=== PATIENT | female | born 1930 | race Caucasian/White ===

== ENCOUNTER 2017-11-22 12:48 | Observation (INO) ==
--- NOTE | 2017-11-22 13:14 | Emergency Department Note ---
Fall HPI - General Chief Complaint: Fall Stated Complaint: Fall Time Seen by Provider: 11/22/17 12:50 Source: patient Limitations: no limitations - History of Present Illness HPI Narrative: 87-year-old female presents with fall last night. She states she got up from her chair and was going to the kitchen to get something and the next thing she knows she was falling. She denies getting dizzy. She has had about 3 falls since she has been living with her family but has not had a fall for a long time. She denies hitting her head or any neck pain. She states her main complaint is pain in the right scapular region. Is not on blood thinners. She goes to wound care and does hyperbaric chamber because of a wound on her right chest. She had breast cancer and had a mastectomy and radiation caused her to have a chronic wound. She states she urinates a lot but that does not seem to being new. No burning. No new cough or fevers. Family wanted her to get checked out to make sure she does not have a broken rib. She does not have much pain with inspiration. No shortness of breath. Sats are 100% on room air. She has chronic lymphedema in the right arm. She also had a little bit of pain in her right foot but does not seem to have any at this time. She usually uses a walker at home for ambulation. She does not ambulate as much as she used to. - Related Data Home Medications Medication Instructions Recorded Confirmed escitalopram 10 mg tablet 10 mg PO QDAY 08/02/16 11/22/17 metoprolol tartrate 50 mg tablet 50 mg PO QDAY 08/02/16 11/22/17 levothyroxine 25 mcg tablet See Label Instructions .ROUTE 12/06/16 11/22/17 .COMPLEX Previous Rx's Medication Instructions Recorded cholecalciferol (vitamin D3) 2,000 2,000 unit PO QDAY #30 cap 05/09/17 unit capsule Allergies Allergy/AdvReac Type Severity Reaction Status Date / Time tramadol AdvReac Intermediate hallucinati Verified 11/22/17 12:55 ons prochlorperazine AdvReac Mild Agitated Verified 11/22/17 12:55 [From Compazine] Review of Systems All systems ED: reviewed and negative except as stated. Fall PMH - Past Medical History Medical history: Reports: arthritis, cancer (breast), hypertension, thyroid disease, other (chronic wound right chest. 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 Mild tenderness on the right foot with no deformity. This is on the lateral aspect of the fifth metatarsal. Full range of motion of her ankles and knees. Bilateral shoulders nontender she has some crepitus with range of motion. Right arm chronic lymphedema. No pain with range of motion. She is tender on the right scapula worse over the scapula. She has some paraspinal tenderness as well. No deformity or bruising. Mild pain with inspiration. Limitations: no limitations General appearance: alert, in no apparent distress Head: atraumatic Eye: Present: normal appearance, PERRL, EOMI. Absent: conjunctival injection Neck: Present: normal inspection, full ROM. Absent: tenderness, lymphadenopathy Chest: Present: symmetric chest wall rise, other (1cm wound right chest, 3cm of erythema surrounding) Respiratory: Present: other (decreased lung sounds right base). Absent: respiratory distress Cardiovascular: Present: bradycardia, systolic murmur Abdominal: Present: soft, normal bowel sounds. Absent: tenderness Neurological: Present: alert, oriented X3 Psychiatric: Present: normal affect, normal mood Skin: Present: warm, dry Course Course Narrative: She will be admitted for pain control and observation by Dr. Fagan Vital Signs Temperature 98.7 F 11/22/17 12:48 Pulse Rate 60 11/22/17 12:48 Respiratory Rate 20 11/22/17 12:48 Pulse Oximetry (%) 96 11/22/17 12:48 Temperature 98.7 F 11/22/17 12:48 Pulse Rate 59 L 11/22/17 14:20 Respiratory Rate 16 11/22/17 14:27 Blood Pressure 159/58 11/22/17 14:20 Pulse Oximetry (%) 99 11/22/17 14:20 Fall - MDM Narrative Medical decision making narrative: Urine dip shows trace leukocytes - Radiology Data Radiology results reviewed: Yes I reviewed the patient's radiology results. Fractures of right 4-9 Disposition Pt seen by HOLE DIGGER OPERATOR/PA only: Yes Clinical Impression: Multiple rib fractures involving four or more ribs Disposition: Xfer As Outpt/Obs ([facility]) Condition: Fair Referrals: Lucero Fu ARNP [Primary Care Provider] -
--- NOTE | 2017-11-22 14:07 | XRay Report ---
HISTORY: Reason for Exam:fall, back pain FINDINGS: There are acute fractures laterally in the right fourth, fifth, sixth, seventh, eighth and ninth ribs. No callus has formed. There is mild pleural thickening adjacent to the rib fractures. No pneumothorax is present but there is a tiny right-sided pleural effusion. There are several calcified pleural plaques anteriorly in the right mid thorax. The heart size is upper limits of normal. Dual-chamber pacemaker is well-positioned. Severe arthritis is present in both shoulders. The spine cannot be evaluated on this study IMPRESSION: Multiple acute right-sided rib fractures Interpreted and Authenticated by: Kenji Gleason 11/22/17
--- NOTE | 2017-11-22 14:09 | XRay Report ---
HISTORY: Reason for Exam:scapular pain after fall FINDINGS: There is severe arthritis in both sides the glenohumeral joint. There is a contour deformity due to remodeling in both sides of the joint. There also large spurs and reactive sclerosis. The scapula is osteopenic but there is no evidence of a fracture of the scapula nor the humerus. There are fractures laterally in the right fourth through ninth ribs. The spine has a kyphotic curvature and there is arthritis and disc degeneration at multiple levels. IMPRESSION: Severe arthritis in the right shoulder but there is no evidence of a fractured scapula Fractured right side ribs Interpreted and Authenticated by: Kenji Gleason 11/22/17
[2017-11-22] MEDS ORDERED: HYDROcodone/APAP 5/325MG TABLET PO ONE (14:24)
[2017-11-22] MEDS ORDERED: HYDROcodone/APAP 5/325MG TABLET PO PRN (14:28)
[2017-11-22] MEDS ORDERED: HYDROmorphone 2 MG/ML VIAL IV PRN (14:33)
[2017-11-22] MEDS ORDERED: ONDANSETRON 4 MG/2 ML VIAL IV PRN (14:33)
--- NOTE | 2017-11-22 18:15 | General Surgery Consult Note ---
History of Present Illness Patient information: Note initiated : 11/22/17 at 6:09 pm Service Date, if different from initiated Date: [] Patient: Alicia Gleason 87 y/o F admitted on 11/22/17 for Fall. Chief Complaint: [] Consult date: 11/22/17 Requesting physician: Jomar Santana (Wound Care. Right chest wall.) History of present illness: I saw this patient in room 109 with her family members. 87 /F. H/O Right breast cancer treated with radical mastectomy in remote past. She has exposed rib and cartilage Right anterior chest wall surgery site. She is currently undergoing HBOT for osteoradionecrosis, in anticipation of reconstructive procedure by Dr. Viraj Yarbrough MD Plastic Surgeon in near future. Patient was admitted to hospital via ER for a NON syncopal fall at home and weakness of right thorax. X ray revealed multiple rib fractures and minimal pleural effusion without pneumothorax. I reviewed the X rays done on admission. Patient DENIES amnesia and is in her usual state of health. She does not have SOB. Her speech is clear and she is NOT cyanotic. Ate full meal. Moves all extremities. Medications and Allergies Home Medications Medication Instructions Recorded Confirmed Type escitalopram 10 mg tablet 20 mg PO QDAY 08/02/16 11/22/17 History metoprolol tartrate 50 mg tablet 50 mg PO QDAY 08/02/16 11/22/17 History levothyroxine 25 mcg tablet 25 mcg PO SUMOWETHFR 12/06/16 11/23/17 History cholecalciferol (vitamin D3) 2,000 2,000 unit PO QDAY #30 cap 05/09/17 11/22/17 Rx unit capsule Levothyroxine [Synthroid] 37.5 mcg PO TUSA 11/23/17 11/23/17 History Allergies Allergy/AdvReac Type Severity Reaction Status Date / Time tramadol AdvReac Intermediate hallucinati Verified 11/22/17 12:55 ons prochlorperazine AdvReac Mild Agitated Verified 11/22/17 12:55 [From Compazine] Exam Temp Pulse Resp BP Pulse Ox 97.0 F 60 16 144/60 96 11/22/17 16:00 11/22/17 15:47 11/22/17 16:00 11/22/17 16:00 11/22/17 16:00 - General physical appearance well developed, well nourished, no distress, no pain - Eyes PERRL, normal ocular movement - ENT normal pinna, normal nares, normal mucosa, no congestion - Head Head exam IM: Present: atraumatic, normal inspection, normocephalic - Neck no masses, no bruits, trachea midline, no venous distension - Cardiovascular Cardiovascular exam IM: Present: normal rate and rhythm - Respiratory normal expansion dullness: right (Decreased breath sounds Right lung base. ) - Abdomen Abdomen: Present: soft, non tender, bowel sounds - Integumentary Present: other (OPne chest wall sound with exposed rib /cartilage at site of previous mastectomy. This is stable and gradually improving. ) - Neurologic Present: normal coordination, normal sensation, other (No focal neurologic deficits. ) - Musculoskeletal Present: normal gait (Lymphedema of Right UE. ), other (Soft tissue lymphedema of RIGHT upper extremity since Rt Radical Mastectomy in remote past. ) - Psychiatric Present: oriented to time, oriented to person, oriented to place, speech is normal, memory intact, other (Lucid and Coherent. Good insight into her problem. ) Results - Labs 11/23/17 04:30 11/23/17 04:30 All other labs normal. Assessment and Plan (1) Blunt chest trauma Assessment: HBOT is on hold at this time, pending resolution of blunt chest wall trauma. Patient encouraged to use IS every 1 to 2 hours when awake. Salt water mouth gargles 4 to 5 times a day. Plan: Await evolution of her clinical status. Patient at risk of barotrauma to lungs with HBOT. If discharged, f/u at wound care clinic next week. Please call clinic and confirm appointment. I will follow her,whilst she is in hospital. Status: Acute Priority: High Qualifiers: Encounter type: initial encounter Qualified Code(s): S29.8XXA - Other specified injuries of thorax, initial encounter (2) Multiple rib fractures involving four or more ribs Status: Acute Priority: High Comment: For conservstive management. Use Incentive Spirometer q 2 hrly when awake. Pain medications PRN as appropriate.
--- NOTE | 2017-11-22 18:23 | General Surg History&Physical ---
History of Present Illness Patient information: Note initiated : 11/22/17 at 6:22 pm Service Date, if different from initiated Date: [] Patient: Alicia Gleason 87 y/o F admitted on 11/22/17 for Fall. Chief Complaint: [] HPI: Ms. Gleason is a 87 year old F was admitted for observation due to multiple rib fractures. The patient states that she was rising from a chair and became dizzy and fell. She complained of right sided chest pain. She was monitored overnight and finally came to the emergency room for evaluation. Chest x-ray shows fractures of the right fourth through the ninth rib. These are primarily non-displaced. She does not have evidence of pneumothorax. She does have some pleuritic pain. She has chronic lymphedema of the upper extremity on the right side but this is due to prior radical mastectomy and radiation changes over the chest wall. Review of Systems - Constitutional fatigue, weakness - EENT Nose, mouth and throat: dizziness, neck pain - Breasts skin changes, other (chronic chest wall changes from radiation injury and osteonecrosis without new changes) - Cardiovascular chest pain with activity, dyspnea on exertion - Respiratory dyspnea on exertion, pain on inspirtation, pain with cough - Gastrointestinal constipation - Genitourinary Genitourinary: nocturia, urinary frequency, urinary incontinence, urinary urgency - Musculoskeletal arthralgias, myalgias, stiffness - Integumentary change in pigmentation, changing lesions, non-healing lesions (extensive skin changes right anterior chest wall due to radiation injury) - Neurological tremor(s) - Psychiatric depression - Endocrine fatigue - Hematologic/Lymphatic no easy bleeding, no easy bruising, no lymphadenopathy - Allergic/Immunologic no tongue swelling, no throat swelling, no uticaria, no wheezing, no lip swelling Past History Past medical history: degenerative joint disease/osteoarthritis Breast cancer Hypertension Hypothyroidism 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 Chronic lymphedema right upper extremity Past surgical history: radical mastectomy right Cholecystectomy Hysterectomy Permanent pacemaker Past family history: not well understood Past social history: former smoker Every day alcohol user Medications and Allergies Home Medications Medication Instructions Recorded Confirmed Type escitalopram 10 mg tablet 20 mg PO QDAY 08/02/16 11/22/17 History metoprolol tartrate 50 mg tablet 50 mg PO QDAY 08/02/16 11/22/17 History levothyroxine 25 mcg tablet 25 mcg PO SUMOWETHFR 12/06/16 11/23/17 History cholecalciferol (vitamin D3) 2,000 2,000 unit PO QDAY #30 cap 05/09/17 11/22/17 Rx unit capsule HYDROcodone/APAP 5/325MG [[place] 1 tab PO Q4HP PRN #30 tab 11/23/17 Rx 5-325Mg] Levothyroxine [Synthroid] 37.5 mcg PO TUSA 11/23/17 11/23/17 History Lidocaine [Lidoderm] 1 patch TOPICAL DAILY@1000 #30 11/23/17 Rx patch Allergies Allergy/AdvReac Type Severity Reaction Status Date / Time tramadol AdvReac Intermediate hallucinati Verified 11/22/17 12:55 ons prochlorperazine AdvReac Mild Agitated Verified 11/22/17 12:55 [From Compazine] Exam Temp Pulse Resp BP Pulse Ox 97.0 F 60 16 144/60 96 11/22/17 16:00 11/22/17 15:47 11/22/17 16:00 11/22/17 16:00 11/22/17 16:00 - General physical appearance well developed, well nourished, no distress, moderate pain - Eyes PERRL, normal ocular movement - ENT normal pinna, normal nares, normal mucosa, no hearing loss, no congestion, decreased hearing - Head Head exam IM: Present: atraumatic (no evidence of head trauma), normal inspection (no tenderness to palpation), normocephalic - Neck no masses, no bruits, trachea midline, no lymphadectomy, no venous distension, other (good range of motion with no posterior lateral tenderness) - Cardiovascular Cardiovascular exam IM: Present: normal rate and rhythm, bradycardia, +S1, +S2. Absent: JVD - Respiratory normal respiratory effort, clear to percussion, clear to auscultation, other ( mild splinting right side; no rales rhonchi or rubs or wheezes) - Abdomen Abdomen: Present: soft, non tender, bowel sounds Hernia: Present: none - Genitourinary Present: normal external genitalia - Integumentary Present: no rash, no growths, other (chronic inflammatory changes right chest wall with superficial ulceration) - Neurologic Present: normal coordination, normal sensation, other (resting tremor of upper extremities) - Musculoskeletal Present: normal gait, normal posture, other (no evidence of bony tenderness or deformity; stable pelvic exam to compression) - Psychiatric Present: oriented to time, oriented to person, oriented to place, speech is normal, memory intact Assessment and Plan (1) Multiple rib fractures involving four or more ribs Status: Acute Priority: High Comment: For conservstive management. Use Incentive Spirometer q 2 hrly when awake. Pain medications PRN as appropriate. (2) Blunt chest trauma Status: Acute Priority: High Qualifiers: Encounter type: initial encounter Qualified Code(s): S29.8XXA - Other specified injuries of thorax, initial encounter (3) Hypertension Status: Acute Qualifiers: Hypertension type: essential hypertension Qualified Code(s): I10 - Essential (primary) hypertension (4) History of breast cancer in female Status: Chronic (5) Renal failure Status: Chronic Qualifiers: Chronic kidney disease stage: stage 2 (mild)
[2017-11-23] MEDS ORDERED: ACETAMINOPHEN 500 MG TABLET PO SCH
[2017-11-23] MEDS: ACETAMINOPHEN 1,000 MG/100 ML BOTTLE IV SCH ×2 (00:59→01:36)
[2017-11-23] MEDS ORDERED: ACETAMINOPHEN 500 MG TABLET PO PRN (01:30)
[2017-11-23] MEDS ORDERED: ACETAMINOPHEN 500 MG TABLET PO ONE ×2 (01:38→06:00)
[2017-11-23 06:04] LABS: ALT/SGPT 19 U/l (0-40); Albumin 3.5 gm/dL (3.2-5.2); Albumin/Globulin Ratio 1.1 (1.0-2.3); Alkaline Phosphatase 95 U/L (39-117); Bilirubin,Direct < 0.2 mg/dL (0.0-0.3); Blood Urea Nitrogen 36 mg/dl (8-23); Gamma Glutamyl Transpeptidase 68 U/L (5-36); Uric Acid 5.9 mg/dL (2.5-8.0)
[2017-11-23 06:08] LABS: Basophils # (Auto) 0 K/mcL (0.0-0.3); Basophils % (Auto) 0.6 % (0.0-2.0); Eosinophils # (Auto) 0.2 K/mcL (0.0-0.7); Eosinophils % (Auto) 2.1 % (0.0-7.0); Granulocytes % (Auto) 60.7 % (38.0-78.0); Lymphocytes # (Auto) 1.9 K/mcL (1.5-4.8); Lymphocytes % (Auto) 25.2 % (15.5-49.0); Mean Cell Volume 92.6 fL (80.0-100.0); Mean Corpuscular HGB Conc 33.4 g/dL (31.0-36.0); Mean Corpuscular Hemoglobin 30.9 pg (26.0-34.0); Monocytes # (Auto) 0.9 K/mcL (0.1-0.9); Monocytes % (Auto) 11.4 % (1.0-12.0); Platelet Count 197 K/mcL (140-440); Red Cell Distribution Width 12.7 % (11.5-14.5)
[2017-11-23] MEDS: ACETAMINOPHEN 500 MG TABLET PO SCH ×2 (06:10→11:45)
--- NOTE | 2017-11-23 08:42 | XRay Report ---
HISTORY: Reason for Exam:f/u of chest injury and rib fractures FINDINGS: There are multiple acute right-sided rib fractures. The adjacent pleura is mildly thickened. No pneumothorax is present. There is a stable tiny right-sided pleural effusion. The central hilar vessels appear engorged and there are prominent increased interstitial lung markings bilaterally. The heart size is normal. These findings have remained stable IMPRESSION: Stable chest since 11/22/17 with no enlargement of the right-sided pleural effusion or pneumothorax. Prominent increased interstitial lung markings and prominent pulmonary vessels. This may be a combination of chronic congestive heart failure with underlying pulmonary fibrosis. Interpreted and Authenticated by: Kenji Gleason 11/23/17
[2017-11-23] MEDS ORDERED: METOPROLOL TARTRATE 50 MG TABLET PO SCH (09:00)
[2017-11-23] MEDS ORDERED: ESCITALOPRAM 10 MG TABLET PO SCH (09:00)
[2017-11-23] MEDS ORDERED: PNEUMOCOCCAL 23-VAL P-SAC VAC 0.5 ML VIAL IM ONE (10:00)
[2017-11-23] MEDS ORDERED: LIDOCAINE PATCH TOPICAL SCH ×2 (10:00→22:00)
--- NOTE | 2017-11-23 13:49 | General Surgery Progress Note ---
Subjective Patient reports: feels better, pain is less, tolerating a regular diet, afebrile Narrative: Note initiated : 11/23/17 at 1:47 pm Service Date, if different from initiated Date: [] Patient: Alicia Gleason 87 y/o F admitted on 11/22/17 for Fall/Multiple Rib Fractures. Chief Complaint: [Patient is doing well. She denies shortness of breath. Her pain is controlled. She has not been very immobile. She has no other discomfort except for chest pain. She denies upper extremity pain, truncal pain or lower extremity pain. Chest x-ray shows no evidence of parenchymal damage upper lung. There is no evidence of pneumothorax.] Objective Temp Pulse Resp BP Pulse Ox 97.3 F 81 18 120/77 95 11/23/17 11:22 11/23/17 04:00 11/23/17 11:22 11/23/17 11:22 11/23/17 11:22 - Additional Data Intake & Output - Last 24 hours: Intake & Output 11/21/17 11/22/17 11/23/17 11/24/17 05:59 05:59 05:59 05:59 Intake Total 480 / 480 240 / 240 Output Total 2 / 2 Balance 478 / 478 240 / 240 Weight 134 lb 8 oz - General physical appearance well developed, well nourished, no distress, moderate pain - Eyes PERRL, normal ocular movement - ENT normal pinna, normal nares, normal mucosa, no hearing loss, no congestion - Neck no masses, no bruits, trachea midline, no lymphadectomy, no venous distension - Respiratory other (Good breath sounds bilaterally though slightly decreased on the right due to splinting; no rales rubs rhonchi or wheezes) - Cardiovascular Cardiovascular exam: Present: normal rate and rhythm, RRR, +S1, +S2. Absent: JVD - Abdomen non tender, bowel sounds (present), surgical scars (none), masses (none) - Integumentary no rash, no growths, other (Radiation changes right anterior chest wall) - Neurologic normal coordination, normal sensation - Musculoskeletal normal gait, normal posture, other (Right upper extremity lymphedema) - Psychiatric oriented to time, oriented to person, oriented to place, speech is normal, memory intact - Labs 11/23/17 04:30 11/23/17 04:30 Diabetes panel 11/23/17 Range/Units 04:30 Sodium 139 (133-145) mmol/L Potassium 4.4 (3.3-5.1) mmol/L Chloride 100 (96-108) mmol/L Carbon Dioxide 26 (22-30) mmol/L BUN 36 H (8-23) mg/dl Creatinine 1.0 (0.6-1.1) mg/dl Glucose 94 (70-105) mg/dL Calcium 9.1 (8.6-10.4) mg/dl AST 22 (0-37) U/l ALT 19 (0-40) U/l Alkaline Phosphatase 95 (39-117) U/L Total Protein 6.8 (5.9-8.4) gm/dL Albumin 3.5 (3.2-5.2) gm/dL Triglycerides 76 (<150) mg/dl Calcium panel 11/23/17 Range/Units 04:30 Calcium 9.1 (8.6-10.4) mg/dl Phosphorus 3.3 (2.7-4.5) mg/dL Albumin 3.5 (3.2-5.2) gm/dL Pituitary panel 11/23/17 Range/Units 04:30 Sodium 139 (133-145) mmol/L Potassium 4.4 (3.3-5.1) mmol/L Chloride 100 (96-108) mmol/L Carbon Dioxide 26 (22-30) mmol/L BUN 36 H (8-23) mg/dl Creatinine 1.0 (0.6-1.1) mg/dl Glucose 94 (70-105) mg/dL Calcium 9.1 (8.6-10.4) mg/dl Adrenal panel 11/23/17 Range/Units 04:30 Sodium 139 (133-145) mmol/L Potassium 4.4 (3.3-5.1) mmol/L Chloride 100 (96-108) mmol/L Carbon Dioxide 26 (22-30) mmol/L BUN 36 H (8-23) mg/dl Creatinine 1.0 (0.6-1.1) mg/dl Glucose 94 (70-105) mg/dL Calcium 9.1 (8.6-10.4) mg/dl Total Bilirubin 0.8 (0.0-1.0) mg/dL AST 22 (0-37) U/l ALT 19 (0-40) U/l Alkaline Phosphatase 95 (39-117) U/L Total Protein 6.8 (5.9-8.4) gm/dL Albumin 3.5 (3.2-5.2) gm/dL Assessment and Plan (1) Multiple rib fractures involving four or more ribs Problem details: For conservstive management. Use Incentive Spirometer q 2 hrly when awake. Pain medications PRN as appropriate. Status: Acute Assessment and plan: Patient is stable for discharge. She is to have follow-up with her primary with the chest x-ray in 1 week. Current Visit: Yes (2) Blunt chest trauma Status: Acute Current Visit: Yes - Time Spent With Patient Total time spent is greater than 50% in coordination of care (as documented) at patient's floor/unit and/or counseling patient:
[2017-11-24] MEDS ORDERED: LEVOTHYROXINE 25 MCG TABLET PO SCH (07:30)
[2017-11-25] MEDS ORDERED: LEVOTHYROXINE 25 MCG TABLET PO SCH (07:30)
== END 2017-11-23 15:30 | disposition home or self-care (01) ==
LOC: MEDSUR 12:48 → ED 12:48 → MEDSUR 15:47
PROVIDERS: ADMIT Family Medicine Adult Medicine; ATTEND Family Medicine Adult Medicine

== ENCOUNTER 2018-06-30 20:13 | Inpatient (IN) ==
--- NOTE | 2018-06-30 20:31 | Emergency Department Note ---
Altered Mental Status HPI - General Chief Complaint: Altered Mental Status Stated Complaint: Lethargic, Confusion Time Seen by Provider: 06/30/18 20:25 Mode of arrival: EMS - History of Present Illness HPI Narrative: Patient presents from alf, increasing weakness and malaise over the last 3 days. Short of breath but no cough. No pleurisy no fevers reported. Had been very active with therapy but now finding it difficult even just to get up. Decreased oral intake. Ongoing skin grafting for breast cancer to the right chest status post mastectomy. Long-standing lymphedema of the right arm. - Related Data Home Medications Medication Instructions Recorded Confirmed levothyroxine 25 mcg tablet 25 mcg PO DAILY 12/06/16 05/23/18 vit C 150 mg-vit E 30 unit-lutein 1 cap PO QDAY 03/01/18 05/23/18 5 [id number] 3 150 mg capsule Bisacodyl [Dulcolax] 10 mg [place] DAILYP PRN 05/23/18 05/23/18 Citalopram [Celexa] 20 mg PO DAILY 05/23/18 05/23/18 Docusate Sodium [Colace] 100 mg PO DAILY 05/23/18 05/23/18 Magnesium Hydroxide [Milk of 30 ml PO DAILYP 05/23/18 05/23/18 Magnesia] Metoprolol Succinate [Toprol Xl] 12.5 mg PO BID 05/23/18 05/23/18 Na Phos,M-B/Na Phos,Di-Ba [Fleets 1 dose [place] ONCE 05/23/18 05/23/18 Adult] Previous Rx's Medication Instructions Recorded Ascorbic Acid [Vitamin C] 1,000 mg PO DAILY tablet 06/06/18 Bisacodyl [Dulcolax] 10 mg [place] DAILYP PRN supp.rect 06/06/18 Citalopram [Celexa] 20 mg PO DAILY tablet 06/06/18 Docusate Sodium [Colace] 100 mg PO BID capsule 06/06/18 Hydrocodone/APAP 7.5/325Mg [[place] 1 - 2 tab PO Q4HP PRN #30 tab 06/06/18 7.5-325Mg] Ipratropium/Albuterol [Duoneb] 3 ml NEB Q6HP PRN ampul.neb 06/06/18 LORazepam [Ativan] 0.5 mg PO DAILYP PRN #10 tab MDD 06/06/18 0.5 Ondansetron HCl [Zofran ODT] 4 mg SL Q4HP PRN #0 tablet 06/06/18 Oxandrolone [Oxandrin] 5 mg PO BID #40 tab 06/06/18 Vit A,C & E/Lutein/Minerals 1 tab PO DAILY tablet 06/06/18 [Ocuvite] Zinc Sulfate [Zinc] 50 mg PO DAILY capsule 06/06/18 Zolpidem [Ambien] 5 mg PO HSP PRN #7 tab 06/06/18 Allergies Allergy/AdvReac Type Severity Reaction Status Date / Time tramadol AdvReac Intermediate hallucinati Verified 03/01/18 09:42 ons prochlorperazine AdvReac Mild Agitated Verified 03/01/18 09:42 [From Compazine] Review of Systems All systems ED: reviewed and negative except as stated. Past Medical History - Past Medical History Attestation: Yes: The following information was validated with the patient. Medical history: Reports: arthritis, cancer (breast), hypertension, thyroid disease, other (chronic wound right chest. 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 Absent: lymphadenopathy Chest: Present: other (healing wound graft over the right breast) Respiratory: Present: normal lung sounds bilaterally. Absent: respiratory distress Cardiovascular: Present: regular rate, normal rhythm. Absent: systolic murmur Abdominal: Present: soft. Absent: tenderness Neurological: Present: alert, oriented X3, other (family week) Skin: Present: warm, dry, other (lymphedema of the right arm) Course Vital Signs Temperature 98.5 F 06/30/18 20:14 Pulse Rate 69 06/30/18 20:14 Respiratory Rate 21 06/30/18 20:14 Blood Pressure 160/60 06/30/18 20:14 Pulse Oximetry (%) 94 06/30/18 20:14 Temperature 98.5 F 06/30/18 20:14 Pulse Rate 69 06/30/18 20:14 Respiratory Rate 21 06/30/18 20:14 Blood Pressure 160/60 06/30/18 20:14 Pulse Oximetry (%) 94 06/30/18 20:14 Disposition Pt seen by WOODYARD CRANE OPERATOR/PA only: No Clinical Impression: Generalized weakness Summary: Suspect infection, likely urinary Laboratory assay, cultures, IV fluid support Please see Dr. Fu note to follow for final diagnosis, disposition and review findings Disposition: Still a Patient Referrals: Lucero Fu ARNP [Primary Care Provider] -
[2018-06-30 21:27] LABS: Basophils # (Auto) 0 K/mcL (0.0-0.3); Basophils % (Auto) 0.4 % (0.0-2.0); Eosinophils # (Auto) 0.1 K/mcL (0.0-0.7); Eosinophils % (Auto) 0.9 % (0.0-7.0); Granulocytes % (Auto) 87.3 % (38.0-78.0); Lymphocytes # (Auto) 0.6 K/mcL (1.5-4.8); Lymphocytes % (Auto) 6.2 % (15.5-49.0); Mean Cell Volume 89.7 fL (80.0-100.0); Mean Corpuscular HGB Conc 30.7 g/dL (31.0-36.0); Mean Corpuscular Hemoglobin 27.6 pg (26.0-34.0); Monocytes # (Auto) 0.5 K/mcL (0.1-0.9); Monocytes % (Auto) 5.2 % (1.0-12.0); Platelet Count 212 K/mcL (140-440); RBC 3.86 M/mcL (4.00-5.20); Red Cell Distribution Width 17.5 % (11.5-14.5)
[2018-06-30] MEDS ORDERED: PIPERACILLIN SODIUM/TAZOBACTAM 3.375 GM in DEXTROSE 5% IN WATER 50 ML IV ONE (21:41)
[2018-06-30 21:43] LABS: ALT/SGPT 42 U/l (0-40); Albumin 3.4 gm/dL (3.2-5.2); Albumin/Globulin Ratio 0.7 (1.0-2.3); Alkaline Phosphatase 103 U/L (39-117); Blood Urea Nitrogen 49 mg/dl (8-23)
[2018-06-30 22:15] LABS: Appearance,Urine CLEAR; Bacteria,Urine FEW /hpf (0); Bilirubin,Urine NEG (NEG); Color,Urine YELLOW; Glucose,Urine (UA) NEGATIVE (NEG); Leukocyte Esterase,Urine NEG /uL (NEG); Mucus,Urine FEW /hpf (0); Protein,Urine 100 mg/dL (NEG); Specific Gravity,Urine 1.019 (1.000-1.035); Urine Amorphous Crystals FEW /hpf (0); Urine Blood NEG mg/dL (<0.03); Urine Hyaline Cast 3 /lpf (0-2); Urine RBC 3 /hpf (0-1); Urine Squamous Epithelial Cell 2 /hpf (0-4); Urine Transitional Epi Cells 1 /hpf (0-2); Urine WBC 2 /hpf (0-4)
--- NOTE | 2018-06-30 23:42 | Emergency Department Note ---
Altered Mental Status HPI - General Chief Complaint: Altered Mental Status Stated Complaint: Lethargic, Confusion Time Seen by Provider: 06/30/18 20:25 Source: patient, family Mode of arrival: EMS Limitations: no limitations - History of Present Illness HPI Narrative: Received this patient in checkout from Dr. hooks at shift change. I reviewed his note. Please see his note for full history review of systems and initial evaluation. Patient came from [facility] More history was obtained from family and patient as her case progressed. Her daughter notes that patient had breast cancer 20+ years ago and had mastectomy and radiation. Since that time she has had difficulty with the healing of her skin flaps has been going to wound care. She has had recent surgery with grafting in that area. Also noted is debridement of bone from that area on the right chest Over the course last few days she is been somewhat confused but not quite delirious. Because of the altered mental status she was brought in - Related Data Home Medications Medication Instructions Recorded Confirmed levothyroxine 25 mcg tablet 25 mcg PO DAILY 12/06/16 05/23/18 vit C 150 mg-vit E 30 unit-lutein 1 cap PO QDAY 03/01/18 05/23/18 5 [id number]-buplhayy-ojiou 3 150 mg capsule Bisacodyl [Dulcolax] 10 mg [place] DAILYP PRN 05/23/18 05/23/18 Citalopram [Celexa] 20 mg PO DAILY 05/23/18 05/23/18 Docusate Sodium [Colace] 100 mg PO DAILY 05/23/18 05/23/18 Magnesium Hydroxide [Milk of 30 ml PO DAILYP 05/23/18 05/23/18 Magnesia] Metoprolol Succinate [Toprol Xl] 12.5 mg PO BID 05/23/18 05/23/18 Na Phos,M-B/Na Phos,Di-Ba [Fleets 1 dose [place] ONCE 05/23/18 05/23/18 Adult] Previous Rx's Medication Instructions Recorded Ascorbic Acid [Vitamin C] 1,000 mg PO DAILY tablet 06/06/18 Bisacodyl [Dulcolax] 10 mg [place] DAILYP PRN supp.rect 06/06/18 Citalopram [Celexa] 20 mg PO DAILY tablet 06/06/18 Docusate Sodium [Colace] 100 mg PO BID capsule 06/06/18 Hydrocodone/APAP 7.5/325Mg [[place] 1 - 2 tab PO Q4HP PRN #30 tab 06/06/18 7.5-325Mg] Ipratropium/Albuterol [Duoneb] 3 ml NEB Q6HP PRN ampul.neb 06/06/18 LORazepam [Ativan] 0.5 mg PO DAILYP PRN #10 tab MDD 06/06/18 0.5 Ondansetron HCl [Zofran ODT] 4 mg SL Q4HP PRN #0 tablet 06/06/18 Oxandrolone [Oxandrin] 5 mg PO BID #40 tab 06/06/18 Vit A,C & E/Lutein/Minerals 1 tab PO DAILY tablet 06/06/18 [Ocuvite] Zinc Sulfate [Zinc] 50 mg PO DAILY capsule 06/06/18 Zolpidem [Ambien] 5 mg PO HSP PRN #7 tab 06/06/18 Allergies Allergy/AdvReac Type Severity Reaction Status Date / Time tramadol AdvReac Intermediate hallucinati Verified 03/01/18 09:42 ons prochlorperazine AdvReac Mild Agitated Verified 03/01/18 09:42 [From Compazine] Past Medical History - Past Medical History Medical history: Reports: arthritis, cancer (breast), hypertension, thyroid disease, other (chronic wound right chest. 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 Surgical history ED: Reports: pacemaker/AICD, other (right mastectomy) - Social History smoking status: Former smoker Physical Exam Limitations: no limitations General appearance: alert, other (pale, generally weak) Course Vital Signs Temperature 98.5 F 06/30/18 20:14 Pulse Rate 69 06/30/18 20:14 Respiratory Rate 21 06/30/18 20:14 Blood Pressure 160/60 06/30/18 20:14 Pulse Oximetry (%) 94 06/30/18 20:14 Temperature 98.8 F 07/01/18 03:38 Pulse Rate 59 L 07/01/18 04:36 Respiratory Rate 24 H 07/01/18 04:36 Blood Pressure 147/66 07/01/18 04:36 Pulse Oximetry (%) 94 07/01/18 04:36 Altered Mental Status - Lab Data Lab results reviewed: Yes I reviewed the patient's lab results. Result diagrams: 06/30/18 21:00 06/30/18 21:00 Lab Results 06/30/18 06/30/18 06/30/18 Range/Units 21:00 21:00 21:00 WBC 10.1 (4.5-11.0) K/mcL RBC 3.86 L (4.00-5.20) M/mcL Hgb 10.6 L (12.0-15.0) g/dL Hct 34.6 L (36.0-48.0) % MCV 89.7 (80.0-100.0) fL MCH 27.6 (26.0-34.0) pg MCHC 30.7 L (31.0-36.0) g/dL RDW 17.5 H (11.5-14.5) % Plt Count 212 (140-440) K/mcL MPV 9.0 (7.4-10.4) fL Gran % 87.3 H (38.0-78.0) % Lymph % (Auto) 6.2 L (15.5-49.0) % Barnes % (Auto) 5.2 (1.0-12.0) % Eos % (Auto) 0.9 (0.0-7.0) % Baso % (Auto) 0.4 (0.0-2.0) % Gran # 8.9 H (1.8-8.0) K/mcL Lymph # (Auto) 0.6 L (1.5-4.8) K/mcL Barnes # (Auto) 0.5 (0.1-0.9) K/mcL Eos # (Auto) 0.1 (0.0-0.7) K/mcL Baso # (Auto) 0 (0.0-0.3) K/mcL VBG Lactic Acid 2.4 H (0.5-2.2) mmol/L Sodium 139 (133-145) mmol/L Potassium 5.4 H (3.3-5.1) mmol/L Chloride 99 (96-108) mmol/L Carbon Dioxide 26 (22-30) mmol/L Anion Gap 14.0 (8-16) BUN 49 H (8-23) mg/dl Creatinine 1.2 H (0.6-1.1) mg/dl GFR Calculation 41 Glucose 126 H (70-105) mg/dL Calcium 9.4 (8.6-10.4) mg/dl Total Bilirubin 1.9 H (0.0-1.0) mg/dL AST 34 (0-37) U/l ALT 42 H (0-40) U/l Alkaline Phosphatase 103 (39-117) U/L Total Protein 8.1 (5.9-8.4) gm/dL Albumin 3.4 (3.2-5.2) gm/dL Globulin 4.7 H (2.2-3.7) gm/dL Albumin/Globulin Ratio 0.7 L (1.0-2.3) Urine Color Urine Appearance Urine pH (5.0-9.0) Ur Specific [place] (1.000-1.035) Urine Protein (NEG) mg/dL Urine Glucose (UA) (NEG) mg/dL Urine Ketones (NEG) mg/dL Urine Occult Blood (<0.03) mg/dL Urine Nitrate (NEG) Urine Bilirubin (NEG) mg/dL Urine Urobilinogen (NEG) mg/dL Ur Leukocyte Esterase (NEG) /uL Urine RBC (0-1) /hpf Urine WBC (0-4) /hpf Ur Squamous Epith Cells (0-4) /hpf Ur Transition Epith Cell (0-2) /hpf Amorphous Crystals (0) /hpf Urine Bacteria (0) /hpf Hyaline Casts (0-2) /lpf Urine Mucus (0) /hpf Ur Culture Indicated? Fluid Source Fluid Color Fluid Appearance Fluid pH Fluid RBC /cumm Fluid Tot Cell Count Fluid Nucleated Cells /cumm Fluid Neutrophils % Fluid Lymphocytes % Fluid Monocytes % Fluid Eosinophils % Fluid Basophils Fluid Plasma Cells Fluid Macrophages % Fld Mesothelial Cells % Pleural Hematocrit % Pleural Albumin gm/dL Pleural LDH U/L Pleural Glucose mg/dL 06/30/18 07/01/18 07/01/18 Range/Units 21:58 02:00 02:00 WBC (4.5-11.0) K/mcL RBC (4.00-5.20) M/mcL Hgb (12.0-15.0) g/dL Hct (36.0-48.0) % MCV (80.0-100.0) fL MCH (26.0-34.0) pg MCHC (31.0-36.0) g/dL RDW (11.5-14.5) % Plt Count (140-440) K/mcL MPV (7.4-10.4) fL Gran % (38.0-78.0) % Lymph % (Auto) (15.5-49.0) % Barnes % (Auto) (1.0-12.0) % Eos % (Auto) (0.0-7.0) % Baso % (Auto) (0.0-2.0) % Gran # (1.8-8.0) K/mcL Lymph # (Auto) (1.5-4.8) K/mcL Barnes # (Auto) (0.1-0.9) K/mcL Eos # (Auto) (0.0-0.7) K/mcL Baso # (Auto) (0.0-0.3) K/mcL VBG Lactic Acid (0.5-2.2) mmol/L Sodium (133-145) mmol/L Potassium (3.3-5.1) mmol/L Chloride (96-108) mmol/L Carbon Dioxide (22-30) mmol/L Anion Gap (8-16) BUN (8-23) mg/dl Creatinine (0.6-1.1) mg/dl GFR Calculation Glucose (70-105) mg/dL Calcium (8.6-10.4) mg/dl Total Bilirubin (0.0-1.0) mg/dL AST (0-37) U/l ALT (0-40) U/l Alkaline Phosphatase (39-117) U/L Total Protein (5.9-8.4) gm/dL Albumin (3.2-5.2) gm/dL Globulin (2.2-3.7) gm/dL Albumin/Globulin Ratio (1.0-2.3) Urine Color Yellow Urine Appearance Clear Urine pH 5.0 (5.0-9.0) Ur Specific [place] 1.019 (1.000-1.035) Urine Protein 100 A (NEG) mg/dL Urine Glucose (UA) Negative (NEG) mg/dL Urine Ketones 5/tr A (NEG) mg/dL Urine Occult Blood Neg (<0.03) mg/dL Urine Nitrate Neg (NEG) Urine Bilirubin Neg (NEG) mg/dL Urine Urobilinogen 4.0 A (NEG) mg/dL Ur Leukocyte Esterase Neg (NEG) /uL Urine RBC 3 H (0-1) /hpf Urine WBC 2 (0-4) /hpf Ur Squamous Epith Cells 2 (0-4) /hpf Ur Transition Epith Cell 1 (0-2) /hpf Amorphous Crystals Few A (0) /hpf Urine Bacteria Few A (0) /hpf Hyaline Casts 3 H (0-2) /lpf Urine Mucus Few (0) /hpf Ur Culture Indicated? Yes Fluid Source Pleural Fluid Color Yellow Fluid Appearance Hazy Fluid pH 7.60 Fluid RBC < 42805 /cumm Fluid Tot Cell Count 200 Fluid Nucleated Cells 533 /cumm Fluid Neutrophils 24 % Fluid Lymphocytes 41 % Fluid Monocytes 2 % Fluid Eosinophils 1 % Fluid Basophils Not Reportable Fluid Plasma Cells Not Reportable Fluid Macrophages 28 % Fld Mesothelial Cells 5 % Pleural Hematocrit < 2.0 % Pleural Albumin 1.3 gm/dL Pleural LDH 91 U/L Pleural Glucose 117 mg/dL - Radiology Data Radiology results reviewed: Yes I reviewed the patient's radiology results. Initial chest x-ray shows almost complete whiteout of the right side of the pleural cavity indicating pleural effusion versus infiltrate We had difficulty getting an IV stick and in fact could not start antibiotics fluids or any other intervention despite multiple attempts at peripheral IVs including with ultrasound guidance. In light of this we did a CT scan of the chest abdomen pelvis without contrast which did show large loculated complex pleural effusion that was new when compared to previous x-ray 6 months prior. Additionally noted is pyelonephritis and proctitis please see [facility] read out for that interpretation Bilirubin is elevated on laboratory along with liver enzymes/bilirubin so ultrasound was done of the liver and common bile duct. CBD was not enlarged effectively ruling out choledocholithiasis Disposition Pt seen by LINING BRUSHER/PA only: No Clinical Impression: Generalized weakness, Large pleural effusion, Hyperkalemia, Fecal impaction, Pyelonephritis Summary: Patient had right IJ placed by She nurse epic kaleidoscope analyst because we could not get IV access. Dr. Monaco the hospitalist did thoracentesis-he did feel that this looked more like an transudate On workup she has the following issues: 1. Poor vascular access. Right IJ placed 2. Fecal impaction with proctitis. Suppositories in place but only liquid still coming out 3. Pyelonephritis on CT scan with corroborating evidence on urinalysis. Zosyn started after cultures 4. Large right pleural effusion status post mastectomy and radiation for breast cancer remote history. Likely transudate 5. Altered mental status likely multifactorial Dr. Moanco admitted the patient for further care and workup please see his notes for details I did take the time to discuss her diagnoses and health issues with her daughter Disposition: Xfer As Inpt ([facility]) Condition: Serious
[2018-07-01] MEDS ORDERED: MIDAZOLAM 2 MG/2 ML VIAL IV ONE (00:18)
--- NOTE | 2018-07-01 01:10 | Procedure Note ---
Procedures - Central Line Placement Right IJ Consent obtained: written consent Time out performed: Yes Patient placed on monitor/pulse ox: Yes prep: mask, sterile gown, sterile gloves, cap Central line prep: 2% Chlorhexidine scrub, proper hand hygiene Local anesthesia used: lidocaine 1% Amount of anesthesia used (mls): 4 Ultrasound used for placement: Yes Central line lumen inserted: quad, 16 cm Post procedure: sutured in place, good blood return, all ports aspirated, flushed, capped, sterile dressing applied Post procedure x-ray: tip of catheter in good position (2 attempts at thread of j wire. difficult dialator advancment as well. no complications noted and all ports aspirated easily.) Patient tolerated procedure: well Complications: none
--- NOTE | 2018-07-01 02:17 | Internal Med History&Physical ---
Medical - H&P: HPI Patient information: Note initiated : 07/01/18 at 2:15 am Service Date, if different from initiated Date: [] Patient: Alicia Gleason a 88 y/o F admitted on for Lethargic, Confusion. Chief Complaint: [] Chief complaint: hard to breath History of present illness: Ms. Gleason is a 88 year old F comes in with some confusion respiratory distress and rectal pain constipated IV access poor and right IJ placed by NANCY Nowak. Pt with loculated effusion. Recently had been doing therapy until about 4 days ago and increasing sob. Coughing when taking pills daughter Says [facility] comes by very early to dispense meds before pt alert. Have been documenting refusal but pt says just not ready that early. So hasnt taken her colace for a while and has had recent right mastectomy site revision with skin flaps and taking pain meds. Now very painful with BM. has received suppository at [facility] and passed some liquid stool here. ROS unobtainable: due to mental status - Constitutional Constitutional: Present: weakness. Absent: fever(s), weight gain, weight loss - Breasts Breasts: Present: other (r) Additional comments: right breast mastectomy and now with recent wound and bone deterioration from past radiation. no evidence of cancer found - Cardiovascular Cardiovascular: Present: dyspnea on exertion - Respiratory Respiratory: Present: cough, dyspnea on exertion, pain on inspirtation, pain with cough. Absent: hemoptysis, excessive phlegm production - Gastrointestinal Gastrointestinal: Present: change in stool character, constipation - Genitourinary Genitourinary: Present: as per HPI. 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) Hyperlipidemia (Chronic) Diabetes mellitus, type II (Chronic) Osteoarthritis (Chronic) Allergic rhinitis (Chronic) Lymphedema (Chronic) Vitamin B12 deficiency (Chronic) Osteopenia (Chronic) Hypothyroidism (Chronic) Vitamin D deficiency (Chronic) Systolic murmur (Chronic) Hyponatremia (Chronic) Pacemaker (Chronic) Mitral insufficiency (Chronic) Edema (Chronic) Chest skin lesion (Chronic) Urinary incontinence (Chronic) Constipation (Chronic) COPD (chronic obstructive pulmonary disease) (Chronic) Gastroenteritis (Chronic) Dehydration (Chronic) Hyperkalemia (Chronic) Renal failure (Chronic) Acute renal failure (Chronic) Anxiety disorder (Chronic) Arthritis (Chronic) Depression (Chronic) Diverticulitis (Chronic) GERD (gastroesophageal reflux disease) (Chronic) H/O fracture of rib (Chronic) H/O therapeutic radiation (Chronic) Mild aortic stenosis (Chronic) Surgical history: right mastectomy 30 years ago Social history: lives at [facility] 2 daughters came to [facility] to attend her visit today,. Smoking status: Unknown if ever smoked Have you smoked in the last 12 months: No Drug use: none Alcohol use: none Medical - H&P: Meds Home Medications Medication Instructions Recorded Confirmed Type levothyroxine 25 mcg tablet 25 mcg PO DAILY 12/06/16 05/23/18 History vit C 150 mg-vit E 30 unit-lutein 1 cap PO QDAY 03/01/18 05/23/18 History 5 xp-echezilb-hivpo 3 150 mg capsule Bisacodyl [Dulcolax] 10 mg [place] DAILYP PRN 05/23/18 05/23/18 History Citalopram [Celexa] 20 mg PO DAILY 05/23/18 05/23/18 History Docusate Sodium [Colace] 100 mg PO DAILY 05/23/18 05/23/18 History Magnesium Hydroxide [Milk of 30 ml PO DAILYP 05/23/18 05/23/18 History Magnesia] Metoprolol Succinate [Toprol Xl] 12.5 mg PO BID 05/23/18 05/23/18 History Na Phos,M-B/Na Phos,Di-Ba [Fleets 1 dose [place] ONCE 05/23/18 05/23/18 History Adult] Ascorbic Acid [Vitamin C] 1,000 mg PO DAILY tablet 06/06/18 Rx Bisacodyl [Dulcolax] 10 mg [place] DAILYP PRN supp.rect 06/06/18 Rx Citalopram [Celexa] 20 mg PO DAILY tablet 06/06/18 Rx Docusate Sodium [Colace] 100 mg PO BID capsule 06/06/18 Rx Hydrocodone/APAP 7.5/325Mg [[place] 1 - 2 tab PO Q4HP PRN #30 tab 06/06/18 Rx 7.5-325Mg] Ipratropium/Albuterol [Duoneb] 3 ml NEB Q6HP PRN ampul.neb 06/06/18 Rx LORazepam [Ativan] 0.5 mg PO DAILYP PRN #10 tab MDD 06/06/18 Rx 0.5 Ondansetron HCl [Zofran ODT] 4 mg SL Q4HP PRN #0 tablet 06/06/18 Rx Oxandrolone [Oxandrin] 5 mg PO BID #40 tab 06/06/18 Rx Vit A,C & E/Lutein/Minerals 1 tab PO DAILY tablet 06/06/18 Rx [Ocuvite] Zinc Sulfate [Zinc] 50 mg PO DAILY capsule 06/06/18 Rx Zolpidem [Ambien] 5 mg PO HSP PRN #7 tab 06/06/18 Rx Allergies Allergy/AdvReac Type Severity Reaction Status Date / Time tramadol AdvReac Intermediate hallucinati Verified 03/01/18 09:42 ons prochlorperazine AdvReac Mild Agitated Verified 03/01/18 09:42 [From Compazine] Medical - H&P: Exam - Constitutional Vitals: Temp Pulse Resp BP Pulse Ox 98.5 F 60 31 H 131/67 93 06/30/18 20:14 07/01/18 01:46 07/01/18 01:46 07/01/18 01:46 07/01/18 01:46 General appearance: average body habitus, cooperative, mild distress Exam: mild overweight - Expanded Head Exam Head exam: Absent: hematoma, raccoon eyes - ENT ENT exam: Present: mucous membranes moist - Neck Neck exam: Present: normal inspection. Absent: tenderness - Respiratory Respiratory exam: Present: decreased breath sounds (right mid and lower lung field). Absent: rhonchi, stridor, wheezes - Cardiovascular Cardiovascular exam: Present: normal rate and rhythm Additional comments: a paced with LBBB intrinsic QRS - GI/Abdominal GI/Abdominal exam: Present: soft - Rectal Rectal exam: Present: deferred - Neurological Exam Neurological exam: Present: alert, oriented X3 - Psychiatric Psychiatric exam: Present: normal affect, normal mood Medical - H&P: Reslt - Labs CBC & Chem 7: 06/30/18 21:00 06/30/18 21:00 Labs: Short CBC 06/30/18 Range/Units 21:00 WBC 10.1 (4.5-11.0) K/mcL Hgb 10.6 L (12.0-15.0) g/dL Hct 34.6 L (36.0-48.0) % Plt Count 212 (140-440) K/mcL BMP 06/30/18 21:00 Sodium 139 Potassium 5.4 H Chloride 99 Carbon Dioxide 26 BUN 49 H Creatinine 1.2 H Glucose 126 H Calcium 9.4 Liver Function 06/30/18 Range/Units 21:00 Total Bilirubin 1.9 H (0.0-1.0) mg/dL AST 34 (0-37) U/l ALT 42 H (0-40) U/l Alkaline Phosphatase 103 (39-117) U/L Albumin 3.4 (3.2-5.2) gm/dL Urine 06/30/18 Range/Units 21:58 Urine Color Yellow Urine Appearance Clear Urine pH 5.0 (5.0-9.0) Ur Specific [place] 1.019 (1.000-1.035) Urine Protein 100 A (NEG) mg/dL Urine Glucose (UA) Negative (NEG) mg/dL - EKG Data -: EKG Interpreted by Myself Rate: normal (a paced with widened emmonak QRS) - Imaging and Cardiology CT scan - chest Additional comments: large right pleural effusion with some areas of loculation. Medical - H&P: A/P (1) Hypothyroidism Current visit: No Status: Chronic checking labs for range due to constipation and effusion (2) Large pleural effusion Current visit: Yes Status: Acute will draw sample and drain as tolerated. Consents signed and pt and daughters counseled. concern for aspiration pneumonia and parapneumonic effusion and also possibly malignancy though she is 30 years out from surgery. CHF or lymphedema also possible and hypothyroidism. (3) Fecal impaction Problem details: painful at times Current visit: Yes Status: Acute enema in the morning. follow by mag citrate once stooling well. (4) Hypertension Current visit: No Status: Chronic resume low dose beta sydni - Narrative A/P Narrative: 50 mins spent in evaluation and coordination of care for this patient separate from procedure documented elsewhere.
--- NOTE | 2018-07-01 02:40 | Procedure Note ---
Procedures - Paracentesis Consent obtained: written consent Time out performed: Yes Indication: other (right pleural effusion) Procedure: therapeutic paracentesis (thoracentesis not paracentesis) Local anesthetic used: lidocaine 2% Amount of anesthesia used (mLs): 5 Bedside ultrasound used: yes, Ascites confirmed and location marked Preparation: sterile prep and drape (no thoracentesis note available.) Amount of fluid obtained: 950 Fluid: clear, sent to lab for analysis Post procedure exam: awake, alert, normal BP, normal HR, normal SpO2 Patient tolerated procedure: well Complications: none
[2018-07-01] MEDS ORDERED: FLEETS ADULT ENEMA PR PRN ×2 (04:12→13:13)
[2018-07-01] MEDS: 0.9 % SODIUM CHLORIDE 1,000 ML IV SCH ×5 (04:17→08:29)
[2018-07-01 05:41] LABS: Glucose,Pleural Fluid 117 mg/dL; LDH,Pleural Fluid 91 U/L
[2018-07-01] MEDS ORDERED: 0.9 % SODIUM CHLORIDE 10 ML SYRINGE IV SCH ×2 (06:00)
[2018-07-01 06:16] LABS: Appearance, Body Fluid HAZY; Color, Body Fluid YELLOW; Mesothelial,Body Fluid 5 %; Nucleated Cells,Body Fld 533 /cumm; RBC, Body Fluid < 50000 /cumm; Total Cell Count Body Fld 200
[2018-07-01] MEDS ORDERED: DOCUSATE SODIUM 100 MG CAPSULE PO SCH ×2 (09:00→21:00)
--- NOTE | 2018-07-01 09:24 | XRay Report ---
CLINICAL INFORMATION: central line placement COMPARISON: 06/30/2018 FINDINGS: Right central line tip overlies the SVC/azygos junction. The heart is mildly enlarged, but stable. Pacemaker and leads remain in stable, satisfactory position. Pulmonary vessels are normal for semirecumbent positioning. Moderate consolidated infiltrate in the the right mid and lower lung is unchanged. There is now a small (5%) right basilar pneumothorax. IMPRESSION: 1. Right IJ line tip overlies the SVC/azygos junction. 2. Moderate infiltrate right mid and lower lung unchanged. Small right pleural effusion. 3. New small right basilar pneumothorax - less than 5%. Suggest repeat film in 2 to 3 hours Interpreted and Authenticated by: Jerome Hollins 07/01/18
--- NOTE | 2018-07-01 09:53 | XRay Report ---
CLINICAL INFORMATION: weakness COMPARISON: 11/20/2017 two-view chest x-ray FINDINGS: Mild cardiomegaly is unchanged. Pacemaker leads in stable satisfactory position. Mediastinum is unremarkable. Pulmonary vessels are slightly distended and there is now mild interstitial edema. Right pleural effusion has increased and is now moderate/large. There is also large densely consolidated atelectasis or infiltrate in the right middle and lower lobes. The lesion - IMPRESSION: 1. Marked increased in right pleural effusion now moderate/large with large region of densely consolidated atelectasis or infiltrate in the right middle and lower lobes. 2. Mild underlying CHF or volume overload Interpreted and Authenticated by: Jerome Hollins 07/01/18
--- NOTE | 2018-07-01 10:30 | Ultrasound Report ---
CLINICAL INFORMATION: Elevated bilirubin and abdominal pain. History of Cholecystectomy COMPARISON: None. FINDINGS: The liver is suboptimally visualized, but no gross lesions and it is normal in size and echotexture. The gallbladder is surgically absent. Common bile duct is normal for age and post cholecystectomy state - 7 mm. Pancreas is normal. No free fluid.: IMPRESSION: Common bile duct normal in caliber for age and history of cholecystectomy. Liver and pancreas are unremarkable Interpreted and Authenticated by: Jerome Hollins 07/01/18
--- NOTE | 2018-07-01 11:25 | Internal Med Progress Note ---
Medical - PN: Subj Patient information: Note initiated : 07/01/18 at 11:23 am Service Date, if different from initiated Date: [] Patient: Alicia Gleason 88 y/o F admitted on 07/01/18 for Lethargic, Confusion. Chief Complaint: [] failure to thrive sleeping alot. short of breath Interval history: large right pleural effusion tapped and found to be transudative. Pt has history of sleeping alot and refusing to awaken for meds and therapy. This worsened on Sunday. Wound VAC removed . Pt had been improving with decreasing wound size and increasing albumin prior to last week. Pt with thyroid replacement missed some recent doses. Sons Rahul and Charles at bedside currently Pertinent ROS: slept most this morning and refused breakfast. - Constitutional Vitals: Vital Signs Temp Pulse Resp BP Pulse Ox 98.8 F 59 L 24 H 119/66 96 07/01/18 03:38 07/01/18 04:36 07/01/18 04:36 07/01/18 10:13 07/01/18 10:13 Period Temp Pulse Resp BP Sys/Busby Pulse Ox Last 24 Hr 98.5 F-98.8 F 49-69 0-56 114-168/52-124 91-100 Intake and Output 06/30/18 07/01/18 07/01/18 21:59 05:59 13:59 Intake Total 50 / 50 1000 / 1000 Output Total Balance 49 / 49 1000 / 1000 Weight 145 lb 132 lb 14.4 oz Intake & Output: Intake & Output 06/30/18 07/01/18 07/01/18 21:59 05:59 13:59 Intake Total 50 / 50 1000 / 1000 Output Total Balance 49 / 49 1000 / 1000 Weight 145 lb 132 lb 14.4 oz Intake: IV 50 / 50 1000 / 1000 Sodium Chloride 0.9% 1,000 ml @ 1000 / 1000 500 mls/hr IV .Q2H BK Rx#: [id number] Output: # of times incontinent of urine Other: Stool Size Moderate Stool Color Brown Stool Consistency Soft # of times incontinent of 1 Bowels Medical - PN: Obj Da - Labs CBC & Chem 7: 06/30/18 21:00 06/30/18 21:00 Labs: Abnormal Lab Results 09/06/30/18 06/30/18 21:58 21:00 21:00 RBC Hgb Hct MCHC RDW Gran % Lymph % (Auto) Gran # Lymph # (Auto) VBG Lactic Acid 2.4 H Potassium 5.4 H BUN 49 H Creatinine 1.2 H Glucose 126 H Total Bilirubin 1.9 H ALT 42 H Globulin 4.7 H Albumin/Globulin Ratio 0.7 L Urine Protein 100 A Urine Ketones 5/tr A Urine Urobilinogen 4.0 A Urine RBC 3 H Amorphous Crystals Few A Urine Bacteria Few A Hyaline Casts 3 H 06/30/18 21:00 RBC 3.86 L Hgb 10.6 L Hct 34.6 L MCHC 30.7 L RDW 17.5 H Gran % 87.3 H Lymph % (Auto) 6.2 L Gran # 8.9 H Lymph # (Auto) 0.6 L VBG Lactic Acid Potassium BUN Creatinine Glucose Total Bilirubin ALT Globulin Albumin/Globulin Ratio Urine Protein Urine Ketones Urine Urobilinogen Urine RBC Amorphous Crystals Urine Bacteria Hyaline Casts Meds: Medications Docusate Sodium (Colace) 200 mg PO BID [facility] Last Admin: 07/01/18 08:28 Dose: 200 mg Piperacillin Sod/Tazobactam (Sod 3.375 gm/ Dextrose) 50 mls @ 100 mls/hr IV Q6H [facility] Sodium Biphosphate/Sodium Phosphate (Fleets Adult) 1 dose [place] DAILYP PRN PRN Reason: Constipation Sodium Chloride (Saline Flush) 10 ml IV Q8 [facility] Last Admin: 07/01/18 06:41 Dose: Not Given Medical - PN: A/P - Time Spent With Patient Total time spent is greater than 50% in coordination of care (as documented) at patient's floor/unit and/or counseling patient: Greater than 35 minutes (1) Hypothyroidism Problem details: thyroid lab pending and also Cortisol testing Status: Chronic Assessment and plan: checking tsh and t4. Cortisol also to be check. Bp fine but FTT. Current Visit: No (2) Large pleural effusion Status: Acute Assessment and plan: transudative. Will check Echo heart. also inflammation of chest wall but non inflammatory results on fluid testing. Current Visit: Yes (3) Fecal impaction Problem details: painful at times Status: Acute Assessment and plan: cont with enema plan Current Visit: Yes (4) Hypertension Problem details: bp stable Status: Chronic Current Visit: No (5) Open wound Status: Acute Assessment and plan: right anterior chest wall. malodorous and goopy wet with yellow green discharge. Will use wet to dry and consult Dr. Yarbrough. Current Visit: Yes Medical - PN: Qual - Stroke Symptom Onset Unknown: No - VTE Deep Vein Thrombosis/Pulmonary Embolism Present on Admission: No
[2018-07-01 11:38] LABS: Basophils # (Auto) 0 K/mcL (0.0-0.3); Basophils % (Auto) 0 % (0.0-2.0); Eosinophils # (Auto) 0.1 K/mcL (0.0-0.7); Eosinophils % (Auto) 0.7 % (0.0-7.0); Granulocytes % (Auto) 81.9 % (38.0-78.0); Lymphocytes # (Auto) 0.9 K/mcL (1.5-4.8); Lymphocytes % (Auto) 11.1 % (15.5-49.0); Mean Cell Volume 90.2 fL (80.0-100.0); Mean Corpuscular HGB Conc 31.8 g/dL (31.0-36.0); Mean Corpuscular Hemoglobin 28.7 pg (26.0-34.0); Monocytes # (Auto) 0.5 K/mcL (0.1-0.9); Monocytes % (Auto) 6.3 % (1.0-12.0); Platelet Count 204 K/mcL (140-440); RBC 3.98 M/mcL (4.00-5.20); Red Cell Distribution Width 18.5 % (11.5-14.5)
[2018-07-01] MEDS ORDERED: PIPERACILLIN SODIUM/TAZOBACTAM 3.375 GM in DEXTROSE 5% IN WATER 50 ML IV SCH (12:00)
[2018-07-01 12:14] LABS: ALT/SGPT 33 U/l (0-40); Albumin 3.1 gm/dL (3.2-5.2); Albumin/Globulin Ratio 0.7 (1.0-2.3); Alkaline Phosphatase 103 U/L (39-117); Blood Urea Nitrogen 50 mg/dl (8-23); Cortisol,AM 23.4 ug/dl (6.2-19.4); Free T4 (Free Thyroxine) 0.94 ng/dl (0.7-1.7)
[2018-07-01] MEDS ORDERED: MAGNESIUM CITRATE 300 ML ORAL.SOL PO PRN ×2 (12:51→13:16)
[2018-07-01] MEDS ORDERED: IPRATROPIUM/ALBUTEROL 3 ML AMPUL.NEB NEB PRN (13:13)
--- NOTE | 2018-07-01 14:02 | Cat Scan Report ---
CLINICAL INFORMATION: Elevated bilirubin and chest/abdomen pain. History of right mastectomy for breast carcinoma COMPARISON: None TECHNIQUE: Enteric and IV contrast were withheld. 0.625 mm helical slices were obtained from the lung apices through the subtrochanteric regions of the femurs. Following reconstruction, 2.5 mm sagittal, coronal and axial reformatted images were processed and reviewed at multiple windows and levels. 7 mm MIP reconstructions were obtained through the lungs to optimize nodule detection.The exam was performed using radiation dose optimization techniques including, but not limited to, automated exposure control, adjustment of the mA and/or kV according to patient size and use of iterative reconstruction technique. FINDINGS: Pulmonary parenchymal windows show a large multiloculated right pleural effusion. Prominent loculated component resides within the accessory azygos fissure. There is complete atelectasis of the right lower lobe and subtotal atelectasis of the right middle lobe. Moderate cicitration bronchiectasis/atelectasis of the perimediastinal right upper lobe is also noted. Mucus plugging is noted within the distal right mainstem bronchus Atelectasis is likely due to a combination of mucus plugging compression from the large right pleural effusion. The left lung is well expanded and clear. The mediastinal windows show the heart is mildly enlarged with pacer leads in stable satisfactory position. There is heavy calcification seen in the mitral and aortic valves. Is also moderate calcification in the coronary arteries. Mildly enlarged lymph nodes noted in the right hilum, subcarina and right peritracheal region - almost certainly benign reactive lymph nodes. The noncontrasted thoracic aorta and pulmonary arteries are normal in contour and caliber. Sternotomy changes are noted Images of the abdomen show the noncontrasted liver, both kidneys, adrenal glands, spleen, pancreas and aorta are normal. Small amount of ascites is seen in the perihepatic and and deep true pelvis region. There is mild concentric wall thickening of the rectum with inflammatory changes in the perirectal fat suggesting proctitis. Scattered sigmoid diverticuli noted. The remaining colon, small bowel, appendix and stomach are normal. There is no free air or abdominal adenopathy. Urinary bladder is grossly normal. Bone windows show only severe degeneration of both glenohumeral joints. There are also a few old right-sided rib fractures.. IMPRESSION: 1. Large, complex multiloculated right pleural effusion resulting in complete compressive atelectasis of the right lower lobe and subtotal right middle lobe atelectasis. There is also cicitration atelectasis/bronchiectasis involving the perimediastinal right upper lobe. The atelectasis is due to compression from the adjacent large pleural effusion and also mucus plugging in the distal right mainstem bronchus. Consider: Ultrasound-guided thoracentesis and respiratory therapy to clear the mucous plug 2. Small amount of ascites. 3. Mild wall thickening of the rectum with edema or inflammation in the perirectal fat suggesting proctitis. Please correlate with physical exam findings Interpreted and Authenticated by: Jerome Hollins 07/01/18
[2018-07-01] MEDS: 0.9 % SODIUM CHLORIDE 10 ML SYRINGE IV SCH ×3 (14:06→20:45)
--- NOTE | 2018-07-01 14:26 | XRay Report ---
CLINICAL INFORMATION: follow up pneumothorax COMPARISON: Portable chest 07/01/2018 0900 hours. FINDINGS: Since the portable chest x-ray seven hours prior, there has been no change in 5% right basilar pneumothorax. Moderate sized infiltrate in the right mid and lower lung shows slight slight improved aeration. Moderate right pleural effusion is decreased. Right IJ line in stable satisfactory position. Left lung is well expanded and clear. The heart is mildly enlarged IMPRESSION: No change in 5% right basilar pneumothorax. Diffuse increased density throughout the right lung representing residual atelectasis and effusion. The fusion has decreased from previous CT yesterday. Interpreted and Authenticated by: Jerome Hollins 07/01/18
[2018-07-01] MEDS: PIPERACILLIN SODIUM/TAZOBACTAM 3.375 GM in DEXTROSE 5% IN WATER 50 ML IV SCH ×2 (17:47→22:57)
[2018-07-01] MEDS: DOCUSATE SODIUM 100 MG CAPSULE PO SCH (20:41)
[2018-07-01] MEDS: ARGININE PO SCH (20:41)
[2018-07-01] MEDS: MIRTAZAPINE 15 MG TABLET PO SCH (20:41)
[2018-07-01] MEDS: CALCIUM HMB PO SCH (20:41)
[2018-07-01] MEDS: GLUTAMINE PO SCH (20:41)
[2018-07-02] MEDS: PIPERACILLIN SODIUM/TAZOBACTAM 3.375 GM in DEXTROSE 5% IN WATER 50 ML IV SCH ×3 (04:59→17:55)
[2018-07-02] MEDS: 0.9 % SODIUM CHLORIDE 10 ML SYRINGE IV SCH ×3 (05:00→20:37)
[2018-07-02 05:27] LABS: Basophils # (Auto) 0 K/mcL (0.0-0.3); Basophils % (Auto) 0.3 % (0.0-2.0); Eosinophils # (Auto) 0.5 K/mcL (0.0-0.7); Eosinophils % (Auto) 5.9 % (0.0-7.0); Granulocytes % (Auto) 73.1 % (38.0-78.0); Lymphocytes % (Auto) 11.7 % (15.5-49.0); Mean Cell Volume 91.1 fL (80.0-100.0); Mean Corpuscular HGB Conc 31.8 g/dL (31.0-36.0); Monocytes # (Auto) 0.7 K/mcL (0.1-0.9); Platelet Count 190 K/mcL (140-440); RBC 3.46 M/mcL (4.00-5.20); Red Cell Distribution Width 18.2 % (11.5-14.5)
[2018-07-02 05:57] LABS: ALT/SGPT 28 U/l (0-40); Albumin 2.8 gm/dL (3.2-5.2); Albumin/Globulin Ratio 0.8 (1.0-2.3); Alkaline Phosphatase 90 U/L (39-117); Blood Urea Nitrogen 40 mg/dl (8-23)
[2018-07-02 07:34] LABS: Erythrocyte Sedimentation Rate 39 mm/hr (0-20)
[2018-07-02] MEDS: ARGININE PO SCH ×2 (08:20→20:31)
[2018-07-02] MEDS: GLUTAMINE PO SCH ×2 (08:20→20:31)
[2018-07-02] MEDS: DOCUSATE SODIUM 100 MG CAPSULE PO SCH ×2 (08:20→20:37)
[2018-07-02] MEDS: CITALOPRAM 20 MG TABLET PO SCH (08:20)
[2018-07-02] MEDS: ASCORBIC ACID 500 MG TABLET PO SCH (08:20)
[2018-07-02] MEDS: ZINC SULFATE 50 MG CAPSULE PO SCH (08:20)
[2018-07-02] MEDS: LEVOTHYROXINE 25 MCG TABLET PO SCH (08:20)
[2018-07-02] MEDS: ENOXAPARIN 40 MG/0.4 ML SYRINGE SQ SCH (08:20)
[2018-07-02] MEDS: CALCIUM HMB PO SCH ×2 (08:20→20:31)
[2018-07-02] MEDS: MULTIVIT,THER IRON,CA,FA & MIN 1 TABLET PO SCH (08:20)
--- NOTE | 2018-07-02 15:05 | Internal Med Progress Note ---
Medical - PN: Subj Patient information: Note initiated : 07/02/18 at 2:50 pm Service Date, if different from initiated Date: [] Patient: Alicia Gleason 88 y/o F admitted on 07/01/18 for Lethargic, Confusion/ Pleural Effusion. Chief Complaint: [lethargy] Interval history: large right pleural effusion tapped and found to be transudative. Pt has history of sleeping alot and refusing to awaken for meds and therapy. This worsened on Sunday. Wound VAC removed . Pt had been improving with decreasing wound size and increasing albumin prior to last week. Pt with thyroid replacement missed some recent doses. Overnight pt has been participating in therapy and eating. Feels better. son at bedside. Multiple family members have been visiting and very supportive. Pt seen by Dr. Yarbrough yest and also by wound care. today. Pertinent ROS: appetite has been poor denies nausea. Sleeps alot. - Constitutional Vitals: Vital Signs Temp Pulse Resp BP Pulse Ox 97.5 F 68 18 120/72 95 07/02/18 12:00 07/02/18 12:00 07/02/18 12:00 07/02/18 12:00 07/02/18 12:00 Period Temp Pulse Resp BP Sys/Busby Pulse Ox Last 24 Hr 96.8 F-98.4 F 68-100 16-20 118-167/53-87 92-99 Intake and Output 07/02/18 07/02/18 07/02/18 05:59 13:59 21:59 Intake Total 600 / 600 50 / 50 Output Total Balance 600 / 600 49 / 49 Weight 139 lb 3.2 oz Patient Weight 07/03/18 05:59 Weight 139 lb 3.2 oz Intake & Output: Intake & Output 07/02/18 07/02/18 07/02/18 05:59 13:59 21:59 Intake Total 600 / 600 50 / 50 Output Total Balance 600 / 600 49 / 49 Weight 139 lb 3.2 oz Intake: IV 100 / 100 50 / 50 Zosyn 3.375 gm In Dextrose 5% 100 / 100 50 / 50 in Water 50 ml @ 100 mls/hr IV Q6H BK Rx#:[id number] Oral 500 / 500 Output: # of times incontinent of urine Other: Meal Lunch Percent of Meal Consumed 25% Feeding Ability Assist with Tray Set Up # Voids 1 # Bowel Movements 1 # of times incontinent of 1 Bowels General appearance: cooperative, no acute distress, thin - Respiratory Respiratory exam: Present: decreased breath sounds, rales Additional comments: bilateral bases - Cardiovascular Cardiovascular exam: Present: normal rate and rhythm - Extremities Exam Extremities exam: Present: pedal edema (trace) - Neurological Exam Neurological exam: Present: alert, oriented X3 - Psychiatric Psychiatric exam: Present: normal affect, normal mood Medical - PN: Obj Da - Labs CBC & Chem 7: 07/02/18 03:52 07/02/18 03:52 Labs: Abnormal Lab Results 07/02/18 07/02/18 07/01/18 03:52 03:52 11:00 RBC 3.46 L Hgb 10.0 L Hct 31.5 L MCHC RDW 18.2 H Gran % Lymph % (Auto) 11.7 L Gran # Lymph # (Auto) 1.0 L ESR 39 H VBG Lactic Acid Potassium BUN 40 H 50 H Creatinine Glucose Calcium 8.3 L Total Bilirubin 1.2 H 2.0 H ALT Albumin 2.8 L 3.1 L Globulin 4.4 H Albumin/Globulin Ratio 0.8 L 0.7 L Cortisol AM Sample 23.4 H Urine Protein Urine Ketones Urine Urobilinogen Urine RBC Amorphous Crystals Urine Bacteria Hyaline Casts 07/01/18 06/30/18 06/30/18 11:00 21:58 21:00 RBC 3.98 L Hgb 11.4 L Hct 35.9 L MCHC RDW 18.5 H Gran % 81.9 H Lymph % (Auto) 11.1 L Gran # Lymph # (Auto) 0.9 L ESR VBG Lactic Acid 2.4 H Potassium BUN Creatinine Glucose Calcium Total Bilirubin ALT Albumin Globulin Albumin/Globulin Ratio Cortisol AM Sample Urine Protein 100 A Urine Ketones 5/tr A Urine Urobilinogen 4.0 A Urine RBC 3 H Amorphous Crystals Few A Urine Bacteria Few A Hyaline Casts 3 H 06/30/18 06/30/18 21:00 21:00 RBC 3.86 L Hgb 10.6 L Hct 34.6 L MCHC 30.7 L RDW 17.5 H Gran % 87.3 H Lymph % (Auto) 6.2 L Gran # 8.9 H Lymph # (Auto) 0.6 L ESR VBG Lactic Acid Potassium 5.4 H BUN 49 H Creatinine 1.2 H Glucose 126 H Calcium Total Bilirubin 1.9 H ALT 42 H Albumin Globulin 4.7 H Albumin/Globulin Ratio 0.7 L Cortisol AM Sample Urine Protein Urine Ketones Urine Urobilinogen Urine RBC Amorphous Crystals Urine Bacteria Hyaline Casts Meds: Medications Albuterol/Ipratropium (Duoneb) 3 ml NEB Q6HP PRN PRN Reason: Shortness Of Breath Or Wheezing Ascorbic Acid (Vitamin C) 1,000 mg PO DAILY [facility] Last Admin: 07/02/18 08:20 Dose: 1,000 mg Citalopram Hydrobromide (Celexa) 20 mg PO DAILY [facility] Last Admin: 07/02/18 08:20 Dose: 20 mg Docusate Sodium (Colace) 100 mg PO BID [facility] Last Admin: 07/02/18 08:20 Dose: 100 mg Enoxaparin Sodium (Lovenox) 40 mg SQ DAILY [facility] Last Admin: 07/02/18 08:20 Dose: 40 mg Piperacillin Sod/Tazobactam (Sod 3.375 gm/ Dextrose) 50 mls @ 100 mls/hr IV Q6H [facility] Last Infusion: 07/02/18 12:15 Dose: Infused Iron Carb/Multivit/[place]/Folic Acid (Multivitamin W/Minerals) 1 tab PO DAILY [facility] Last Admin: 07/02/18 08:20 Dose: 1 tab Levothyroxine Sodium (Synthroid) 25 mcg PO QAMAC [facility] Last Admin: 07/02/18 08:20 Dose: 25 mcg Magnesium Citrate (Citroma) 150 ml PO BIDP PRN PRN Reason: For BM once a day Mirtazapine (Remeron) 7.5 mg PO HS [facility] Last Admin: 07/01/18 20:41 Dose: 7.5 mg Arginine/Glutamine/ (Calcium Hmb 1.5 Each) 1 dose PO BID [facility] Last Admin: 07/02/18 08:20 Dose: Not Given Sodium Biphosphate/Sodium Phosphate (Fleets Adult) 1 dose [place] PRN PRN PRN Reason: Constipation Sodium Chloride (Saline Flush) 10 ml IV Q8 [facility] Last Admin: 07/02/18 13:05 Dose: 10 ml Zinc Sulfate (Zinc) 50 mg PO DAILY [facility] Last Admin: 07/02/18 08:20 Dose: 50 mg Medical - PN: A/P - Time Spent With Patient Total time spent is greater than 50% in coordination of care (as documented) at patient's floor/unit and/or counseling patient: Greater than 35 minutes (1) Hypothyroidism Problem details: thyroid lab pending and also Cortisol testing Status: Chronic Assessment and plan: thyroid labs and cortisol normal start megace for appetite. Current Visit: No (2) Large pleural effusion Status: Acute Assessment and plan: transudative. echo showed volume overload of IVC but normal LV function. diurese. Current Visit: Yes (3) Fecal impaction Problem details: painful at times Status: Resolved Assessment and plan: resolved. cont stool softners. Current Visit: Yes (4) Hypertension Problem details: bp stable Status: Chronic Assessment and plan: stable Current Visit: No (5) Open wound Status: Acute Assessment and plan: right anterior chest wall. malodorous and goopy wet yest. started on wound vac. Dr. Bazan from wound care is seeing pt. Current Visit: Yes Medical - PN: Qual - Stroke Symptom Onset Unknown: No - VTE Deep Vein Thrombosis/Pulmonary Embolism Present on Admission: No
--- NOTE | 2018-07-02 15:34 | XRay Report ---
CLINICAL INFORMATION: follow up right pleural effusion and pneumothorax COMPARISON: 07/01/2018 FINDINGS: Mild cardiomegaly is unchanged. Pacemaker and leads in stable satisfactory position. Right IJ line in stable satisfactory position as well. Mediastinum and pulmonary vessels are normal. Right basilar pneumothorax has almost resolved with only a tiny sliver-like residual air. Small right pleural effusion unchanged. Mild patchy infiltrate right middle and lower lobes continues to improve. IMPRESSION: 1. Improvement in right middle and lower lobe infiltrates vague residual 2. Small right pleural effusion unchanged. Right basilar pneumothorax nearly resolved. Interpreted and Authenticated by: Jerome Hollins 07/02/18
[2018-07-02] MEDS: MEGESTROL ACETATE 400 MG/10 ML ORAL.SUSP PO SCH ×2 (16:40→20:37)
[2018-07-02] MEDS: MIRTAZAPINE 15 MG TABLET PO SCH (20:29)
[2018-07-03] MEDS: PIPERACILLIN SODIUM/TAZOBACTAM 3.375 GM in DEXTROSE 5% IN WATER 50 ML IV SCH ×4 (00:03→17:49)
[2018-07-03] MEDS: 0.9 % SODIUM CHLORIDE 10 ML SYRINGE IV SCH ×4 (00:03→20:05)
[2018-07-03] MEDS: LEVOTHYROXINE 25 MCG TABLET PO SCH (07:29)
[2018-07-03] MEDS: MEGESTROL ACETATE 400 MG/10 ML ORAL.SUSP PO SCH ×2 (10:01→20:05)
[2018-07-03] MEDS: MULTIVIT,THER IRON,CA,FA & MIN 1 TABLET PO SCH (10:01)
[2018-07-03] MEDS: ASCORBIC ACID 500 MG TABLET PO SCH (10:01)
[2018-07-03] MEDS: CITALOPRAM 20 MG TABLET PO SCH (10:01)
[2018-07-03] MEDS: ENOXAPARIN 40 MG/0.4 ML SYRINGE SQ SCH (10:01)
[2018-07-03] MEDS: DOCUSATE SODIUM 100 MG CAPSULE PO SCH ×2 (10:01→20:05)
[2018-07-03] MEDS: CALCIUM HMB PO SCH ×2 (10:43→20:06)
[2018-07-03] MEDS: ARGININE PO SCH ×2 (10:43→20:06)
[2018-07-03] MEDS: GLUTAMINE PO SCH ×2 (10:43→20:06)
[2018-07-03] MEDS: ZINC SULFATE 50 MG CAPSULE PO SCH (13:46)
--- NOTE | 2018-07-03 17:34 | Internal Med Progress Note ---
Medical - PN: Subj Patient information: Note initiated : 07/03/18 at 5:32 pm Service Date, if different from initiated Date: [] Patient: Alicia Gleason 88 y/o F admitted on 07/01/18 for Lethargic, Confusion/ Pleural Effusion. Chief Complaint: [] Interval history: Patient ate breakfast but skipped lunch. She is accompanied 2 sons and a daughter. Patient is alert and conversant and reports better spirits family is pleased with her improved attitude Right anterior chest wound culture was done and preliminary shows staph. Patient is from a intermediate. She has never had MRSA before Pertinent ROS: No fever no chest pain - Constitutional Vitals: Vital Signs Temp Pulse Resp BP Pulse Ox 97.4 F 92 H 20 143/64 95 07/03/18 11:41 07/03/18 04:00 07/03/18 11:41 07/03/18 11:41 07/03/18 11:41 Period Temp Pulse Resp BP Sys/Busby Pulse Ox Last 24 Hr 97.3 F-98.6 F 79-109 18-24 114-148/64-83 92-96 Intake and Output 07/03/18 07/03/18 07/03/18 05:59 13:59 21:59 Intake Total 825 / 825 460 / 460 250 / 250 Output Total 101 / 101 Balance 825 / 825 459 / 459 149 / 149 Intake & Output: Intake & Output 07/03/18 07/03/18 07/03/18 05:59 13:59 21:59 Intake Total 825 / 825 460 / 460 250 / 250 Output Total 101 / 101 Balance 825 / 825 459 / 459 149 / 149 Intake: IV 50 / 50 100 / 100 Zosyn 3.375 gm In Dextrose 5% 50 / 50 100 / 100 in Water 50 ml @ 100 mls/hr IV Q6H [facility] Rx#:[id number] Oral 775 / 775 360 / 360 250 / 250 Output: Void Amount 100 / 100 # of times incontinent of urine Other: Meal Breakfast Nourishment/Supplement Percent of Meal Consumed 100% Feeding Ability Assist with Tray Set Up Urine Color Bright Yellow Urine Odor Normal Stool Size Moderate Small Stool Color Brown Brown Stool Consistency Loose Dry and Hard Formed # Voids 1 1 # Bowel Movements 1 1 # of times incontinent of 1 Bowels General appearance: average body habitus, cooperative, no acute distress - Respiratory Respiratory exam: Present: decreased breath sounds (right lower lung diminished but with crackles), rales (left lower lung with crackles and decreased breath sounds that improves with deep breath and cough) - Cardiovascular Cardiovascular exam: Present: normal rate and rhythm - Extremities Exam Extremities exam: Present: pedal edema (trace edema), Foot pink and warm - Back Exam Back exam: Absent: CVA tenderness (L), CVA tenderness (R) - Psychiatric Psychiatric exam: Present: normal affect, normal mood - Skin Skin exam: Present: dry (wound not examined), warm Medical - PN: Obj Da - Labs CBC & Chem 7: 07/02/18 03:52 07/02/18 03:52 Labs: Abnormal Lab Results 07/02/18 07/02/18 07/01/18 03:52 03:52 11:00 RBC 3.46 L Hgb 10.0 L Hct 31.5 L MCHC RDW 18.2 H Gran % Lymph % (Auto) 11.7 L Gran # Lymph # (Auto) 1.0 L ESR 39 H VBG Lactic Acid Potassium BUN 40 H 50 H Creatinine Glucose Calcium 8.3 L Total Bilirubin 1.2 H 2.0 H ALT Albumin 2.8 L 3.1 L Globulin 4.4 H Albumin/Globulin Ratio 0.8 L 0.7 L Cortisol AM Sample 23.4 H Urine Protein Urine Ketones Urine Urobilinogen Urine RBC Amorphous Crystals Urine Bacteria Hyaline Casts 07/01/18 06/30/18 06/30/18 11:00 21:58 21:00 RBC 3.98 L Hgb 11.4 L Hct 35.9 L MCHC RDW 18.5 H Gran % 81.9 H Lymph % (Auto) 11.1 L Gran # Lymph # (Auto) 0.9 L ESR VBG Lactic Acid 2.4 H Potassium BUN Creatinine Glucose Calcium Total Bilirubin ALT Albumin Globulin Albumin/Globulin Ratio Cortisol AM Sample Urine Protein 100 A Urine Ketones 5/tr A Urine Urobilinogen 4.0 A Urine RBC 3 H Amorphous Crystals Few A Urine Bacteria Few A Hyaline Casts 3 H 06/30/18 06/30/18 21:00 21:00 RBC 3.86 L Hgb 10.6 L Hct 34.6 L MCHC 30.7 L RDW 17.5 H Gran % 87.3 H Lymph % (Auto) 6.2 L Gran # 8.9 H Lymph # (Auto) 0.6 L ESR VBG Lactic Acid Potassium 5.4 H BUN 49 H Creatinine 1.2 H Glucose 126 H Calcium Total Bilirubin 1.9 H ALT 42 H Albumin Globulin 4.7 H Albumin/Globulin Ratio 0.7 L Cortisol AM Sample Urine Protein Urine Ketones Urine Urobilinogen Urine RBC Amorphous Crystals Urine Bacteria Hyaline Casts Meds: Medications Acetaminophen (Tylenol) 650 mg PO Q4-6HP PRN PRN Reason: PAIN/FEVER > 101 Albuterol/Ipratropium (Duoneb) 3 ml NEB Q6HP PRN PRN Reason: Shortness Of Breath Or Wheezing Ascorbic Acid (Vitamin C) 1,000 mg PO DAILY [facility] Last Admin: 07/03/18 10:01 Dose: 1,000 mg Citalopram Hydrobromide (Celexa) 20 mg PO DAILY [facility] Last Admin: 07/03/18 10:01 Dose: 20 mg Docusate Sodium (Colace) 100 mg PO BID [facility] Last Admin: 07/03/18 10:01 Dose: 100 mg Enoxaparin Sodium (Lovenox) 40 mg SQ DAILY [facility] Last Admin: 07/03/18 10:01 Dose: 40 mg Piperacillin Sod/Tazobactam (Sod 3.375 gm/ Dextrose) 50 mls @ 100 mls/hr IV Q6H [facility] Last Infusion: 07/03/18 12:50 Dose: Infused Iron Carb/Multivit/[place]icholas/Folic Acid (Multivitamin W/Minerals) 1 tab PO DAILY [facility] Last Admin: 07/03/18 10:01 Dose: 1 tab Levothyroxine Sodium (Synthroid) 25 mcg PO QAMAC [facility] Last Admin: 07/03/18 07:29 Dose: 25 mcg Magnesium Citrate (Citroma) 150 ml PO BIDP PRN PRN Reason: For BM once a day Megestrol Acetate (Megace) 400 mg PO BID [facility] Last Admin: 07/03/18 10:01 Dose: 400 mg Mirtazapine (Remeron) 7.5 mg PO HS [facility] Last Admin: 07/02/18 20:29 Dose: 7.5 mg Arginine/Glutamine/ (Calcium Hmb 1.5 Each) 1 dose PO BID [facility] Last Admin: 07/03/18 10:43 Dose: Not Given Sodium Biphosphate/Sodium Phosphate (Fleets Adult) 1 dose [place] PRN PRN PRN Reason: Constipation Sodium Chloride (Saline Flush) 10 ml IV Q8 [facility] Last Admin: 07/03/18 13:47 Dose: 10 ml Zinc Sulfate (Zinc) 50 mg PO DAILY [facility] Last Admin: 07/03/18 13:46 Dose: 50 mg Medical - PN: A/P - Time Spent With Patient Total time spent is greater than 50% in coordination of care (as documented) at patient's floor/unit and/or counseling patient: 25 - 35 minutes (1) Hypothyroidism Problem details: thyroid lab and also Cortisol normal Status: Chronic Assessment and plan: thyroid labs and cortisol normal start megace for appetite. Current Visit: No (2) Large pleural effusion Status: Acute Assessment and plan: transudative. echo showed volume overload of IVC but normal LV function. diurese. Negative for infection as far Current Visit: Yes (3) Fecal impaction Problem details: painful at times Status: Resolved Assessment and plan: resolved. cont stool softners. Current Visit: Yes (4) Hypertension Problem details: bp stable Status: Chronic Assessment and plan: stable Current Visit: No (5) Open wound Status: Acute Assessment and plan: Dr. Bazan from wound care is seeing pt. culture shows staph aureus sensitivities are pending unclear whether this is truly cellulitis or is simply colonized at this point patient does not appear systemically ill Current Visit: Yes Medical - PN: Qual - Stroke Symptom Onset Unknown: No - VTE Deep Vein Thrombosis/Pulmonary Embolism Present on Admission: No
[2018-07-03] MEDS ORDERED: TORSEMIDE 10 MG TABLET PO ONE (17:43)
[2018-07-03] MEDS ORDERED: POTASSIUM CHLORIDE 10 MEQ TABLET PO ONE (17:43)
[2018-07-03] MEDS: MIRTAZAPINE 15 MG TABLET PO SCH (20:05)
--- NOTE | 2018-07-03 22:07 | General Surgery Progress Note ---
Surgical - Auxillary Note - Subjective Patient Information: Note initiated : 07/03/18 at 10:03 pm Service Date, if different from initiated Date: [] Patient: Alicia Gleason 88 y/o F admitted on 07/01/18 for Lethargic, Confusion/ Pleural Effusion. Chief Complaint: [] Patient seen early this morning. Wound evaluated showing increased purulent drainage on dressing. No air from wound with coughing. Granulation tissue in most areas but inferiorly without granulation. Appears infected at this time so do not recommend VAC placement. Wound dressed with silver alginate after Vashe cleansing. Cx taken yesterday shows staph aureus. Patient started on Zosyn.
[2018-07-04] MEDS: PIPERACILLIN SODIUM/TAZOBACTAM 3.375 GM in DEXTROSE 5% IN WATER 50 ML IV SCH ×4 (00:04→18:12)
[2018-07-04 05:44] LABS: Basophils # (Auto) 0 K/mcL (0.0-0.3); Basophils % (Auto) 0.4 % (0.0-2.0); Eosinophils # (Auto) 0.3 K/mcL (0.0-0.7); Eosinophils % (Auto) 6.4 % (0.0-7.0); Granulocytes % (Auto) 69.1 % (38.0-78.0); Lymphocytes # (Auto) 0.6 K/mcL (1.5-4.8); Lymphocytes % (Auto) 12.1 % (15.5-49.0); Mean Cell Volume 91.4 fL (80.0-100.0); Mean Corpuscular HGB Conc 31.5 g/dL (31.0-36.0); Mean Corpuscular Hemoglobin 28.8 pg (26.0-34.0); Monocytes # (Auto) 0.6 K/mcL (0.1-0.9); Platelet Count 203 K/mcL (140-440); Red Cell Distribution Width 18.1 % (11.5-14.5)
[2018-07-04] MEDS: 0.9 % SODIUM CHLORIDE 10 ML SYRINGE IV SCH ×4 (05:47→18:11)
[2018-07-04 05:53] LABS: Blood Urea Nitrogen 22 mg/dl (8-23)
[2018-07-04] MEDS: LEVOTHYROXINE 25 MCG TABLET PO SCH (07:08)
[2018-07-04] MEDS ORDERED: TORSEMIDE 10 MG TABLET PO SCH (09:00)
[2018-07-04] MEDS: MULTIVIT,THER IRON,CA,FA & MIN 1 TABLET PO SCH (09:14)
[2018-07-04] MEDS: ZINC SULFATE 50 MG CAPSULE PO SCH (09:14)
[2018-07-04] MEDS: ENOXAPARIN 40 MG/0.4 ML SYRINGE SQ SCH (09:15)
[2018-07-04] MEDS: ASCORBIC ACID 500 MG TABLET PO SCH (09:15)
[2018-07-04] MEDS: CITALOPRAM 20 MG TABLET PO SCH (09:15)
[2018-07-04] MEDS: DOCUSATE SODIUM 100 MG CAPSULE PO SCH ×2 (09:15→21:19)
[2018-07-04] MEDS: POTASSIUM CHLORIDE 10 MEQ TABLET PO SCH (09:16)
[2018-07-04] MEDS: CALCIUM HMB PO SCH ×2 (09:17→21:20)
[2018-07-04] MEDS: GLUTAMINE PO SCH ×2 (09:17→21:20)
[2018-07-04] MEDS: ARGININE PO SCH ×2 (09:17→21:20)
[2018-07-04] MEDS: MEGESTROL ACETATE 400 MG/10 ML ORAL.SUSP PO SCH ×2 (09:17→21:19)
--- NOTE | 2018-07-04 09:45 | General Surgery Progress Note ---
Surgical - Auxillary Note - Subjective Patient Information: Note initiated : 07/04/18 at 9:41 am Service Date, if different from initiated Date: [] Patient: Alicia Gleason 88 y/o F admitted on 07/01/18 for Lethargic, Confusion/ Pleural Effusion. Chief Complaint: [] Patient is sitting up in chair at bedside eating breakfast. States that she is feeling better than yesterday. Still has a congested cough. Vital Signs Temp Pulse Resp BP Pulse Ox 99.0 F 96 H 24 H 143/71 94 07/04/18 07:02 07/04/18 07:02 07/04/18 07:02 07/04/18 07:02 07/04/18 07:02 Period Temp Pulse Resp BP Sys/Busby Pulse Ox Last 24 Hr 97.4 F-99.8 F 96-110 18-24 126-146/61-74 90-97 Intake and Output 07/03/18 07/04/18 07/04/18 21:59 05:59 13:59 Intake Total 500 / 500 300 / 300 50 / 50 Output Total 101 / 101 2 / 2 1 / Balance 399 / 399 298 / 298 49 / 49 Weight 133 lb 8 oz PE: Focused examination of the right chest wall wound shows continued purulent drainage near the wound staining the silver alginate dressing that is present. Removal of the dressing shows the wound size and small inferior tunneling unchanged. Granulation tissue that is present is healthy-appearing however in the inferior aspect where there is tunneling underneath the flap there is minimal granulation present with some exposed bone. CBC and Chem 7 07/04/18 04:00 07/04/18 04:00 Right chest wall wound at site of previous surgery and radiation therapy; status post flap closure with partial flap loss. Cultures taken 2 days ago show staph aureus growing from the area. Sensitivities are not yet available. Patient is currently on Zosyn. Discussed plan of therapy for infection with Dr. Monaco, the hospitalist. At this time will leave patient on Zosyn until sensitivities are back and can adjust antibiotics according to those results. Continue local wound care with cleansing of wounds with Vashe prior to dressing placement.
--- NOTE | 2018-07-04 11:58 | Internal Med Progress Note ---
Medical - PN: Subj Patient information: Note initiated : 07/04/18 at 11:56 am Service Date, if different from initiated Date: [] Patient: Alicia Gleason 88 y/o F admitted on 07/01/18 for Lethargic, Confusion/ Pleural Effusion. Chief Complaint: [] Interval history: ate all of breakfast this morning. Pts spirits very good this morning. Has been doing IS but only 400 volumes. NO fevers. STaph in wound of chest and pus so awaiting sensitivities to change abx. Doubt pseudomonas and dont need zosyn any longer. kyle jai and josé miguel at bedside - Constitutional Vitals: Vital Signs Temp Pulse Resp BP Pulse Ox 99.0 F 96 H 24 H 143/71 94 07/04/18 07:02 07/04/18 07:02 07/04/18 07:02 07/04/18 07:02 07/04/18 07:30 Period Temp Pulse Resp BP Sys/Busby Pulse Ox Last 24 Hr 98.2 F-99.8 F 96-110 18-24 126-146/61-74 90-97 Intake and Output 07/03/18 07/04/18 07/04/18 21:59 05:59 13:59 Intake Total 500 / 500 300 / 300 50 / 50 Output Total 101 / 101 2 / 2 Balance 399 / 399 298 / 298 49 / 49 Weight 133 lb 8 oz Intake & Output: Intake & Output 07/03/18 07/04/18 07/04/18 21:59 05:59 13:59 Intake Total 500 / 500 300 / 300 50 / 50 Output Total 101 / 101 2 / 2 Balance 399 / 399 298 / 298 49 / 49 Weight 133 lb 8 oz Intake: IV 50 / 50 50 / 50 50 / 50 Zosyn 3.375 gm In Dextrose 5% 50 / 50 50 / 50 50 / 50 in Water 50 ml @ 100 mls/hr IV Q6H [facility] Rx#:[id number] Oral 450 / 450 250 / 250 Output: Void Amount 100 / 100 # of times incontinent of urine / 2 / 2 Other: Meal Dinner Percent of Meal Consumed 50% Feeding Ability Needs Supervision Urine Appearance Clear Urine Color Bright Yellow Stool Size Small Small Stool Color Brown Brown Stool Consistency Dry and Hard Soft Formed # Voids 1 50 # Bowel Movements 1 1 General appearance: average body habitus, cooperative, no acute distress - Respiratory Respiratory exam: Present: decreased breath sounds (right greater than left), rales (right base). Absent: accessory muscle use, wheezes - Cardiovascular Cardiovascular exam: Present: normal rate and rhythm - Expanded Cardiovascular Exam Type of murmur: Present: crescendo Location: Present: LUSB, RUSB Intensity: 4/6 - GI/Abdominal GI/Abdominal exam: Present: normal bowel sounds, soft. Absent: distended, firm , rebound, tenderness - Extremities Exam Extremities exam: Present: pedal edema (trace) - Neurological Exam Neurological exam: Present: alert, oriented X3 - Psychiatric Psychiatric exam: Present: normal affect, normal mood Medical - PN: Obj Da - Labs CBC & Chem 7: 07/04/18 04:00 07/04/18 04:00 Labs: Abnormal Lab Results 07/04/18 07/04/18 07/02/18 04:00 04:00 03:52 RBC 3.50 L Hgb 10.1 L Hct 32.0 L RDW 18.1 H Lymph % (Auto) 12.1 L Lymph # (Auto) 0.6 L ESR Carbon Dioxide 33 H BUN 40 H Calcium 8.5 L 8.3 L Total Bilirubin 1.2 H Albumin 2.8 L Globulin Albumin/Globulin Ratio 0.8 L Cortisol AM Sample 07/02/18 07/01/18 03:52 11:00 RBC 3.46 L Hgb 10.0 L Hct 31.5 L RDW 18.2 H Lymph % (Auto) 11.7 L Lymph # (Auto) 1.0 L ESR 39 H Carbon Dioxide BUN 50 H Calcium Total Bilirubin 2.0 H Albumin 3.1 L Globulin 4.4 H Albumin/Globulin Ratio 0.7 L Cortisol AM Sample 23.4 H Meds: Medications Acetaminophen (Tylenol) 650 mg PO Q4-6HP PRN PRN Reason: PAIN/FEVER > 101 Albuterol/Ipratropium (Duoneb) 3 ml NEB Q6HP PRN PRN Reason: Shortness Of Breath Or Wheezing Ascorbic Acid (Vitamin C) 1,000 mg PO DAILY [facility] Last Admin: 07/04/18 09:15 Dose: 1,000 mg Citalopram Hydrobromide (Celexa) 20 mg PO DAILY [facility] Last Admin: 07/04/18 09:15 Dose: 20 mg Docusate Sodium (Colace) 100 mg PO BID [facility] Last Admin: 07/04/18 09:15 Dose: 100 mg Enoxaparin Sodium (Lovenox) 40 mg SQ DAILY [facility] Last Admin: 07/04/18 09:15 Dose: 40 mg Piperacillin Sod/Tazobactam (Sod 3.375 gm/ Dextrose) 50 mls @ 100 mls/hr IV Q6H [facility] Last Infusion: 07/04/18 06:40 Dose: Infused Iron Carb/Multivit/[place]/Folic Acid (Multivitamin W/Minerals) 1 tab PO DAILY [facility] Last Admin: 07/04/18 09:14 Dose: 1 tab Levothyroxine Sodium (Synthroid) 25 mcg PO QAMAC [facility] Last Admin: 07/04/18 07:08 Dose: 25 mcg Magnesium Citrate (Citroma) 150 ml PO BIDP PRN PRN Reason: For BM once a day Megestrol Acetate (Megace) 400 mg PO BID [facility] Last Admin: 07/04/18 09:17 Dose: 400 mg Mirtazapine (Remeron) 7.5 mg PO HS [facility] Last Admin: 07/03/18 20:05 Dose: 7.5 mg Arginine/Glutamine/ (Calcium Hmb 1.5 Each) 1 dose PO BID [facility] Last Admin: 07/04/18 09:17 Dose: Not Given Pot[facility] ([facility]ur) [facility] Admin: 07/04/18 09:16 Dose: 10 meq Sodium Biphosphate/Sodium Phosphate (Fleets Adult) 1 dose [place] PRN PRN PRN Reason: Constipation Sodium Chloride (Saline Flush) 10 ml IV Q8 [facility] Last Admin: 07/04/18 05:47 Dose: 10 ml Torsemide (Demadex) 10 mg PO DAILY [facility] Last Admin: 07/04/18 09:15 Dose: 10 mg Zinc Sulfate (Zinc) 50 mg PO DAILY [facility] Last Admin: 07/04/18 09:14 Dose: 50 mg Medical - PN: A/P - Time Spent With Patient Total time spent is greater than 50% in coordination of care (as documented) at patient's floor/unit and/or counseling patient: Greater than 35 minutes (1) Hypothyroidism Problem details: thyroid lab and also Cortisol normal Status: Chronic Assessment and plan: thyroid labs and cortisol normal start megace for appetite. Current Visit: No (2) Large pleural effusion Status: Acute Assessment and plan: transudative. echo showed volume overload of IVC but normal LV function. diurese. culture negative CHF fluid Current Visit: Yes (3) Fecal impaction Problem details: painful at times Status: Resolved Assessment and plan: resolved. cont stool softners. Current Visit: Yes (4) Hypertension Problem details: bp stable Status: Chronic Assessment and plan: stable Current Visit: No (5) Open wound Status: Acute Assessment and plan: Dr. Bazan from wound care is seeing pt. culture shows staph aureus sensitivities are pending unclear whether this is truly cellulitis or is simply colonized at this point patient does not appear systemically ill planning to treat as infection once sensitivities back as per discussion with Beni Delacruz Current Visit: Yes (6) Aortic stenosis, severe Status: Acute Assessment and plan: not a candidate and also declines evaluation for AVR fluid management Current Visit: Yes (7) Acute on chronic combined systolic (congestive) and diastolic (congestive) heart failure Status: Acute Assessment and plan: diurese and control heart rate. Current Visit: Yes Medical - PN: Qual - Stroke Symptom Onset Unknown: No - VTE Deep Vein Thrombosis/Pulmonary Embolism Present on Admission: No
[2018-07-04] MEDS ORDERED: FUROSEMIDE 20 MG/2 ML VIAL IV ONE (12:12)
[2018-07-04] MEDS ORDERED: POTASSIUM CHLORIDE 20 MEQ TABLET PO ONE (12:13)
[2018-07-04] MEDS: MIRTAZAPINE 15 MG TABLET PO SCH (21:20)
[2018-07-04] MEDS: SODIUM CHLORIDE IV SCH (21:22)
[2018-07-05] MEDS: PIPERACILLIN SODIUM/TAZOBACTAM 3.375 GM in DEXTROSE 5% IN WATER 50 ML IV SCH ×2 (00:14→06:06)
[2018-07-05 06:06] LABS: Basophils # (Auto) 0 K/mcL (0.0-0.3); Basophils % (Auto) 0.4 % (0.0-2.0); Eosinophils # (Auto) 0.4 K/mcL (0.0-0.7); Eosinophils % (Auto) 7.6 % (0.0-7.0); Granulocytes % (Auto) 63.5 % (38.0-78.0); Lymphocytes # (Auto) 0.9 K/mcL (1.5-4.8); Lymphocytes % (Auto) 17.3 % (15.5-49.0); Mean Cell Volume 90.1 fL (80.0-100.0); Mean Corpuscular HGB Conc 31.3 g/dL (31.0-36.0); Mean Corpuscular Hemoglobin 28.2 pg (26.0-34.0); Monocytes # (Auto) 0.6 K/mcL (0.1-0.9); Monocytes % (Auto) 11.2 % (1.0-12.0); Platelet Count 207 K/mcL (140-440); RBC 3.53 M/mcL (4.00-5.20); Red Cell Distribution Width 17.8 % (11.5-14.5)
[2018-07-05 07:27] LABS: ALT/SGPT 22 U/l (0-40); Albumin 2.9 gm/dL (3.2-5.2); Albumin/Globulin Ratio 0.7 (1.0-2.3); Alkaline Phosphatase 83 U/L (39-117); Bilirubin,Direct 0.5 mg/dL (0.0-0.3); Blood Urea Nitrogen 21 mg/dl (8-23); Gamma Glutamyl Transpeptidase 102 U/L (5-36); Uric Acid 2.6 mg/dL (2.5-8.0)
--- NOTE | 2018-07-05 07:59 | General Surgery Progress Note ---
Surgical - Auxillary Note - Subjective Patient Information: Note initiated : 07/05/18 at 7:59 am Service Date, if different from initiated Date: [] Patient: Alicia Gleason 88 y/o F admitted on 07/01/18 for Lethargic, Confusion/ Pleural Effusion. Chief Complaint: [] Patient is sitting up in chair at the bedside. She has no complaints. She states that she is feeling better. Vital Signs Temp Pulse Resp BP Pulse Ox 96.6 F L 107 H 14 144/78 89 L 07/05/18 06:56 07/05/18 06:56 07/05/18 06:56 07/05/18 06:56 07/05/18 06:56 Period Temp Pulse Resp BP Sys/Busby Pulse Ox Last 24 Hr 96.6 F-98.9 F 105-107 14-20 119-159/57-93 89-94 Intake and Output 07/04/18 07/05/18 07/05/18 21:59 05:59 13:59 Intake Total 310 / 310 50 / 50 Output Total 4 / 4 3 / 3 Balance 306 / 306 47 / 47 Weight 132 lb 3.2 oz PE: Patient is in no distress. Chest: Breath sounds clear in the upper [place] with some scattered expiratory wheezing. Right chest wall wound continues to have purulence within the wound bed. This is less than 2 days ago but not significantly different from yesterday. No surrounding erythema. The inferior most aspect of the wound has no real granulation tissue present although all other surrounding area seemed to have healthy-appearing granulation tissue. CBC and Chem 7 07/05/18 04:00 07/05/18 04:00 A/P: Right chest wall wound at site of previous surgery and radiation therapy. Status post flap closure with partial flap loss. Will change dressings from Aquasol AG to moist to dry dressings 2-3 times a day and as needed to help clean up this wound.
[2018-07-05] MEDS: ENOXAPARIN 40 MG/0.4 ML SYRINGE SQ SCH (08:35)
[2018-07-05] MEDS: LEVOTHYROXINE 25 MCG TABLET PO SCH (08:35)
[2018-07-05] MEDS: MULTIVIT,THER IRON,CA,FA & MIN 1 TABLET PO SCH (08:35)
[2018-07-05] MEDS: POTASSIUM CHLORIDE 10 MEQ TABLET PO SCH (08:36)
[2018-07-05] MEDS: MEGESTROL ACETATE 400 MG/10 ML ORAL.SUSP PO SCH ×2 (08:36→21:38)
[2018-07-05] MEDS: DOCUSATE SODIUM 100 MG CAPSULE PO SCH ×2 (08:36→21:23)
[2018-07-05] MEDS: CITALOPRAM 20 MG TABLET PO SCH (08:36)
[2018-07-05] MEDS: ZINC SULFATE 50 MG CAPSULE PO SCH (08:50)
[2018-07-05] MEDS: ASCORBIC ACID 500 MG TABLET PO SCH (08:50)
[2018-07-05] MEDS: SODIUM CHLORIDE IV SCH ×2 (09:00→21:40)
[2018-07-05] MEDS ORDERED: TORSEMIDE 10 MG TABLET PO SCH (09:00)
[2018-07-05] MEDS ORDERED: FUROSEMIDE 40 MG/4 ML VIAL IV ONE (11:02)
[2018-07-05] MEDS: CALCIUM HMB PO SCH ×2 (11:28→21:26)
[2018-07-05] MEDS: ARGININE PO SCH ×2 (11:28→21:26)
[2018-07-05] MEDS: GLUTAMINE PO SCH ×2 (11:28→21:26)
[2018-07-05] MEDS: NEUTRA PHOS 1 PACKET PO SCH ×3 (11:36→21:35)
--- NOTE | 2018-07-05 12:33 | XRay Report ---
CLINICAL INFORMATION: pneumonia, pleural effusion COMPARISON: 07/02/2018 FINDINGS: Moderate cardiomegaly is unchanged. Pacemaker/leads and right IJ line may in stable satisfactory position. Mediastinum is normal. Pulmonary vessels are now moderately distended with mild interstitial edema developing throughout both lungs. Right pleural effusion is worsened - now moderate with moderate airspace disease in the right mid and lower lung. It is likely atelectasis rather than pneumonia IMPRESSION: Moderate recurrent CHF Moderate right pleural effusion worsening considerably with moderate overlying airspace disease in the right mid and lower lung. This is more likely atelectasis than infiltrate Interpreted and Authenticated by: Jerome Hollins 07/05/18
[2018-07-05] MEDS: IPRATROPIUM/ALBUTEROL 3 ML AMPUL.NEB NEB SCH ×2 (14:03→18:47)
--- NOTE | 2018-07-05 15:35 | Internal Med Progress Note ---
Medical - PN: Subj Patient information: Note initiated : 07/05/18 at 3:32 pm Service Date, if different from initiated Date: [] Patient: Alicia Gleason 88 y/o F admitted on 07/01/18 for Lethargic, Confusion/ Pleural Effusion. Chief Complaint: [] Interval history: 88 yr female with chr chest wound admitted for respiratory distress and constipation. 07/05-patient seen examined, no acute overnight issues, has some cough, but feels better compared to yesterday, son by the bed side. patient looks weak and much more sick than how I remember her during her recent hospitalization for swing bed status Echo done reviewed, moderate to severe aortic stenosis, pulmonary hypertension, noted. Patient had pleural effusion on presentation, on CT Was loculated. She was tapped by the previous hsopitalist provider, thought to be transudative? Pertinent ROS: Denies headache, dizziness Denies chest pain, palpitations improving cough and shortness of breath Denies abdominal pain, nausea or vomiting. - Constitutional Vitals: Vital Signs Temp Pulse Resp BP Pulse Ox 97.2 F 93 H 16 146/81 90 07/05/18 12:00 07/05/18 14:04 07/05/18 14:04 07/05/18 12:00 07/05/18 14:04 Period Temp Pulse Resp BP Sys/Busby Pulse Ox Last 24 Hr 96.6 F-98.9 F 93-107 14-20 127-159/62-93 89-94 Intake and Output 07/05/18 07/05/18 07/05/18 05:59 13:59 21:59 Intake Total 50 / 50 50 / 50 Output Total 3 / 3 Balance 47 / 47 50 / 50 Intake & Output: Intake & Output 07/05/18 07/05/18 07/05/18 05:59 13:59 21:59 Intake Total 50 / 50 50 / 50 Output Total 3 / 3 Balance 47 / 47 50 / 50 Intake: IV 50 / 50 50 / 50 Zosyn 3.375 gm In Dextrose 5% 50 / 50 in Water 50 ml @ 100 mls/hr IV Q6H BK Rx#:[id number] Oral 0 / 0 Output: # of times incontinent of urine 3 / 3 Other: Stool Size Moderate Stool Color Brown Stool Consistency Soft # Voids 1 # Bowel Movements 0 1 Exam: Constitutional; Afebrile, cooperative, alert, not in distress. Eyes- No icterus, , No periorbital swelling Ears- Ext ear normal, hearing normal to conversation. Neck- Midline trachea, supple Respiratory system: Air Entry decreased right base,mid lung, left bse, luz crackles present, no wheeze CVS- Rate rhythm regular, S1,S2 heard, no gallop, no rub. aortic stenosis murmur , Abdomen- Soft nontender abdomen, no organomegaly, no tenderness, no guarding or rigidity, BAG SHAKER- AOOx3, moving all extremities, no gross focal deficit noted. Medical - PN: Obj Da - Labs CBC & Chem 7: 07/05/18 04:00 07/05/18 04:00 Labs: Abnormal Lab Results 07/05/18 07/05/18 07/04/18 04:00 04:00 14:00 RBC 3.53 L Hgb 10.0 L Hct 31.8 L RDW 17.8 H Lymph % (Auto) Eos % (Auto) 7.6 H Lymph # (Auto) 0.9 L Carbon Dioxide 33 H Calcium Phosphorus 1.6 L 2.2 L Direct Bilirubin 0.5 H GGT 102 H Albumin 2.9 L Globulin 3.9 H Albumin/Globulin Ratio 0.7 L 07/04/18 07/04/18 04:00 04:00 RBC 3.50 L Hgb 10.1 L Hct 32.0 L RDW 18.1 H Lymph % (Auto) 12.1 L Eos % (Auto) Lymph # (Auto) 0.6 L Carbon Dioxide 33 H Calcium 8.5 L Phosphorus Direct Bilirubin GGT Albumin Globulin Albumin/Globulin Ratio Meds: Medications Acetaminophen (Tylenol) 650 mg PO Q4-6HP PRN PRN Reason: PAIN/FEVER > 101 Albuterol/Ipratropium (Duoneb) 3 ml NEB Q6HRT [facility] Last Admin: 07/05/18 14:03 Dose: 3 ml Amoxicillin/Clavulanate Potassium (Augmentin) 875 mg PO BIDCC [facility] Ascorbic Acid (Vitamin C) 1,000 mg PO DAILY [facility] Last Admin: 07/05/18 08:50 Dose: 1,000 mg Citalopram Hydrobromide (Celexa) 20 mg PO DAILY [facility] Last Admin: 07/05/18 08:36 Dose: 20 mg Docusate Sodium (Colace) 100 mg PO BID [facility] Last Admin: 07/05/18 08:36 Dose: 100 mg Enoxaparin Sodium (Lovenox) 40 mg SQ DAILY [facility] Last Admin: 07/05/18 08:35 Dose: 40 mg Furosemide (Lasix) 40 mg IV BIDD [facility] Iron Carb/Multivit/Prue/Folic Acid (Multivitamin W/Minerals) 1 tab PO DAILY [facility] Last Admin: 07/05/18 08:35 Dose: 1 tab Levothyroxine Sodium (Synthroid) 25 mcg PO QAMAC [facility] Last Admin: 07/05/18 08:35 Dose: 25 mcg Magnesium Citrate (Citroma) 150 ml PO BIDP PRN PRN Reason: For BM once a day Megestrol Acetate (Megace) 400 mg PO BID [facility] Last Admin: 07/05/18 08:36 Dose: 400 mg Mirtazapine (Remeron) 7.5 mg PO HS [facility] Last Admin: 07/04/18 21:20 Dose: 7.5 mg Arginine/Glutamine/ (Calcium Hmb 1.5 Each) 1 dose PO BID [facility] Last Admin: 07/05/18 11:28 Dose: Not Given Potassium Chloride (Kdur) 10 meq PO QAMCC [facility] Last Admin: 07/05/18 08:36 Dose: 10 meq Potassium/Phosphorus/Sodium (Neutra Phos) 1 packet PO BID [facility] Last Admin: 07/05/18 11:41 Dose: Not Given Sodium Biphosphate/Sodium Phosphate (Fleets Adult) 1 dose [place] PRN PRN PRN Reason: Constipation Sodium Chloride (Saline Flush) 10 ml IV UD PRN PRN Reason: FLUSH Sodium Chloride (Sodium Chloride) 10 ml IV Q12 [facility] Last Admin: 07/05/18 09:00 Dose: 10 ml Zinc Sulfate (Zinc) 50 mg PO DAILY [facility] Last Admin: 07/05/18 08:50 Dose: 50 mg Medical - PN: A/P - Time Spent With Patient Total time spent is greater than 50% in coordination of care (as documented) at patient's floor/unit and/or counseling patient: - Narrative A/P Narrative: A/P Loculated Pleural Effusion- Case reviewed with pulmonary, noted repeat CXR is reported as chf, patient has loculations on the Ct, pleural fluid analysis is not growing any micro. Pulmonary consult advised thoracoscopy/ and possible chest tubes. I reviewed if this could be done at this facility, Dr Fagan noted that this would be needed to be done by a thoracic surgeon. I explained the patient her choices. She notes she is a old woman and would like to think and discuss this with her family. On oral Augmentin, was on zosyn before. CHF exacerbation acute, diastolic- Echo noted, moderate to severe , with pulmonary hypertension. Preserved LV function. IV lasix for now, cobian placed will monitor, Aortic stenosis- Pt has CHF due to likely , and diastolic dysfunction. Need for intervention, pt has been reluctant for procedure int he past Hypothyroidism- TSH wnl, continue levothyroxine. Fecam impaction- resolved HTN- BP stable with present bp meds Chest wall wound- Management as per wound care, microbiology reviewed, syeda, on oral augmentin. DVT Enoxaparin Regualr diet DNR code status ON talking with the patient, and family it seems they understand the overall poor prognosis. Medical - PN: Qual - Stroke Symptom Onset Unknown: No - VTE Deep Vein Thrombosis/Pulmonary Embolism Present on Admission: No
[2018-07-05] MEDS ORDERED: NEUTRA PHOS 1 PACKET PO ONE (15:39)
[2018-07-05] MEDS: 0.9 % SODIUM CHLORIDE 10 ML SYRINGE IV PRN ×2 (15:44→21:36)
[2018-07-05] MEDS: FUROSEMIDE 40 MG/4 ML VIAL IV SCH (15:44)
[2018-07-05] MEDS ORDERED: AMOXICILLIN/POTASSIUM CLAV 875 MG TABLET PO SCH (17:30)
[2018-07-05] MEDS: AMOXICILLIN/POTASSIUM CLAV 875 MG TABLET PO SCH (18:00)
--- NOTE | 2018-07-05 18:50 | Consultation ---
DATE OF CONSULTATION: 07/02/2018 CHIEF COMPLAINT: Ms. Gleason is seen in consultation at the request of the hospitalist service for management of the right chest wall wound. HISTORY OF PRESENT ILLNESS: Ms. Gleason is a 89-year-old woman with past medical history significant for right breast cancer for which she underwent a right mastectomy with subsequent radiation therapy to the chest wall. She later developed a right chest wall wound which has been chronic and difficult to heal. She has undergone a flap closure of this area by plastic surgeon, but part of the flap has been lost and she now still has an open wound which has been managed by her plastic surgeon. Plastic surgeon is not available during this hospitalization, and wound care consult was requested for evaluation and help in management. The patient was admitted this hospitalization for pleural effusion with increasing shortness of breath and cough. In talking with the patient, she reports no pain in the area of her wound, but is coughing significantly throughout the interview. PAST MEDICAL HISTORY: Extensive including breast cancer as per above. Hyperlipidemia, diabetes, lymphedema, hypothyroidism, pacemaker, mitral valve insufficiency, COPD, gastroesophageal reflux disease. HOME MEDICATIONS: As listed per the hospitalist's admit note. PHYSICAL EXAMINATION: VITAL SIGNS: Ms. Gleason is an elderly woman, who appears her stated age. HEENT: Head is normocephalic, and sclerae are white. CHEST: Breath sounds are coarse throughout all lung mckeon with rales noted in the bases. On the chest wall on the right side, there is an open wound with an area of soft tissue covering from previous flap closure. Where the flap meets the open wound, there is some tunneling with the base of this wound showing no granulation tissue present and a portion of rib bone visible. There is purulent drainage present and cultures of this were taken with the culture swab. The patient was asked to cough during this examination revealing no passage of air or bubbling of the fluid within this wound area. The remainder of the wound appears to have granulation tissue growing which actually is healthy appearing. However, this does not extend into the depth of the wound. The skin surrounding the wound has changes consistent with prior radiation including thinning of the skin and discoloration, but no surrounding wounds of the skin. ASSESSMENT AND PLAN: Right chest wall wound, chronic. The cyst and the site of previous extensive surgery and radiation therapy. Flap closure is partially successful. Hospitalist reports that patient's plastic surgeon had ordered for wound VAC to be placed However, given the appearance of infection, I would not recommend doing this at this time. We will await cultures for directing antibiotic therapy, although she is currently on a broad spectrum antibiotic. I would recommend cleansing this area daily with wash cleanser followed by starting with silver alginate dressing daily and as needed. RC:in Job ID: [id number] Doc ID: [id number] Jasmin Bazan MD
[2018-07-05] MEDS ORDERED: NEUTRA PHOS 1 PACKET PO SCH (21:00)
[2018-07-05] MEDS: MIRTAZAPINE 15 MG TABLET PO SCH (21:36)
[2018-07-05] MEDS: ACETAMINOPHEN 325 MG TABLET PO PRN (21:36)
[2018-07-06] MEDS: IPRATROPIUM/ALBUTEROL 3 ML AMPUL.NEB NEB SCH ×4 (01:21→19:10)
[2018-07-06 06:22] LABS: Basophils # (Auto) 0 K/mcL (0.0-0.3); Basophils % (Auto) 0.4 % (0.0-2.0); Eosinophils # (Auto) 0.3 K/mcL (0.0-0.7); Eosinophils % (Auto) 6.2 % (0.0-7.0); Granulocytes % (Auto) 62.9 % (38.0-78.0); Lymphocytes # (Auto) 1.1 K/mcL (1.5-4.8); Lymphocytes % (Auto) 19.9 % (15.5-49.0); Mean Cell Volume 89.9 fL (80.0-100.0); Mean Corpuscular HGB Conc 32.1 g/dL (31.0-36.0); Mean Corpuscular Hemoglobin 28.9 pg (26.0-34.0); Monocytes # (Auto) 0.6 K/mcL (0.1-0.9); Monocytes % (Auto) 10.6 % (1.0-12.0); Platelet Count 212 K/mcL (140-440); RBC 3.37 M/mcL (4.00-5.20); Red Cell Distribution Width 18.3 % (11.5-14.5)
[2018-07-06] MEDS: LEVOTHYROXINE 25 MCG TABLET PO SCH (06:29)
[2018-07-06] MEDS: ACETAMINOPHEN 325 MG TABLET PO PRN (06:33)
[2018-07-06 06:41] LABS: ALT/SGPT 24 U/l (0-40); Albumin 2.8 gm/dL (3.2-5.2); Albumin/Globulin Ratio 0.8 (1.0-2.3); Alkaline Phosphatase 78 U/L (39-117); Bilirubin,Direct 0.4 mg/dL (0.0-0.3); Blood Urea Nitrogen 26 mg/dl (8-23); Gamma Glutamyl Transpeptidase 96 U/L (5-36); Uric Acid 3.1 mg/dL (2.5-8.0)
[2018-07-06] MEDS: ASCORBIC ACID 500 MG TABLET PO SCH (08:30)
[2018-07-06] MEDS: 0.9 % SODIUM CHLORIDE 10 ML SYRINGE IV PRN ×3 (08:31→15:59)
[2018-07-06] MEDS: ZINC SULFATE 50 MG CAPSULE PO SCH (08:31)
[2018-07-06] MEDS: MEGESTROL ACETATE 400 MG/10 ML ORAL.SUSP PO SCH ×2 (08:32→22:15)
[2018-07-06] MEDS: CITALOPRAM 20 MG TABLET PO SCH (08:34)
[2018-07-06] MEDS: AMOXICILLIN/POTASSIUM CLAV 875 MG TABLET PO SCH ×2 (08:34→18:44)
[2018-07-06] MEDS: DOCUSATE SODIUM 100 MG CAPSULE PO SCH ×2 (08:34→22:10)
[2018-07-06] MEDS: MULTIVIT,THER IRON,CA,FA & MIN 1 TABLET PO SCH (08:34)
[2018-07-06] MEDS: POTASSIUM CHLORIDE 10 MEQ TABLET PO SCH (08:35)
[2018-07-06] MEDS: FUROSEMIDE 40 MG/4 ML VIAL IV SCH ×2 (08:36→15:59)
[2018-07-06] MEDS: ENOXAPARIN 40 MG/0.4 ML SYRINGE SQ SCH (08:37)
[2018-07-06] MEDS: NEUTRA PHOS 1 PACKET PO SCH ×2 (08:44→22:15)
[2018-07-06] MEDS: GLUTAMINE PO SCH ×2 (08:45→22:27)
[2018-07-06] MEDS: CALCIUM HMB PO SCH ×2 (08:45→22:27)
[2018-07-06] MEDS: ARGININE PO SCH ×2 (08:45→22:27)
[2018-07-06] MEDS: SODIUM CHLORIDE IV SCH ×2 (08:46→22:27)
--- NOTE | 2018-07-06 13:31 | Internal Med Progress Note ---
Medical - PN: Subj Patient information: Note initiated : 07/06/18 at 1:29 pm Service Date, if different from initiated Date: [] Patient: Alicia Gleason 88 y/o F admitted on 07/01/18 for Lethargic, Confusion/ Pleural Effusion. Chief Complaint: [] Interval history: 88 yr female with chr chest wound admitted for respiratory distress and constipation. 07/05-patient seen examined, no acute overnight issues, has some cough, but feels better compared to yesterday, son by the bed side. patient looks weak and much more sick than how I remember her during her recent hospitalization for swing bed status Echo done reviewed, moderate to severe aortic stenosis, pulmonary hypertension, noted. Patient had pleural effusion on presentation, on CT Was loculated. She was tapped by the previous hsopitalist provider, thought to be transudative? 07/06 patient seen examined, doing better today, sitting comfortably in chair I reviewed with her and her family the recommendations of the cloth bleaching range back tender, the need for transfer to higher center for thoracoscopy and the also need for aortic valve intervention. Patient is not keen on doing any further procedures just medical management, she wishes to be comfortable and pursue palliative care. family in agreement with the plan. Pertinent ROS: Denies headache, dizziness Denies chest pain, palpitations improving cough and shortness of breath Denies abdominal pain, nausea or vomiting. - Constitutional Vitals: Vital Signs Temp Pulse Resp BP Pulse Ox 98.2 F 101 H 22 102/56 92 07/06/18 11:45 07/06/18 07:19 07/06/18 11:45 07/06/18 11:45 07/06/18 11:45 Period Temp Pulse Resp BP Sys/Busby Pulse Ox Last 24 Hr 98.0 F-99.8 F 93-104 16-24 102-151/52-87 90-97 Intake and Output 07/05/18 07/06/18 07/06/18 21:59 05:59 13:59 Intake Total 320 / 320 200 / 200 420 / 420 Output Total 801 / 801 1600 / 1600 Balance -481 / -481 -1400 / -1400 420 / 420 Weight 123 lb 8 oz Intake & Output: Intake & Output 07/05/18 07/06/18 07/06/18 21:59 05:59 13:59 Intake Total 320 / 320 200 / 200 420 / 420 Output Total 801 / 801 1600 / 1600 Balance -481 / -481 -1400 / -1400 420 / 420 Weight 123 lb 8 oz Intake: Oral 320 / 320 200 / 200 420 / 420 Output: Urine Catheter Amount 800 / 800 1600 / 1600 # of times incontinent of urine Other: Meal Dinner Lunch Percent of Meal Consumed 25% 50% Feeding Ability Independent Urine Appearance Clear Clear Uretheral (Cobian) Clear Clear Urine Color Bright Yellow Pale Uretheral (Cobian) Bright Yellow Urine Odor Normal Normal Exam: Constitutional; Afebrile, cooperative, alert, not in distress. Eyes- No icterus, , No periorbital swelling Ears- Ext ear normal, hearing normal to conversation. Neck- Midline trachea, supple Respiratory system: Air Entry decreased right base, luz crackles are improved. CVS- Rate rhythm regular, S1,S2 heard, no gallop, no rub. 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 Medical - PN: Obj Da - Labs CBC & Chem 7: 07/06/18 04:00 07/06/18 04:00 Labs: Abnormal Lab Results 07/06/18 07/06/18 07/05/18 04:00 04:00 04:00 RBC 3.37 L Hgb 9.7 L Hct 30.3 L RDW 18.3 H Lymph % (Auto) Eos % (Auto) Lymph # (Auto) 1.1 L Chloride 93 L Carbon Dioxide 39 H 33 H BUN 26 H Calcium 8.5 L Phosphorus 1.6 L Direct Bilirubin 0.4 H 0.5 H GGT 96 H 102 H Albumin 2.8 L 2.9 L Globulin 3.9 H Albumin/Globulin Ratio 0.8 L 0.7 L 07/05/18 07/04/18 07/04/18 04:00 14:00 04:00 RBC 3.53 L Hgb 10.0 L Hct 31.8 L RDW 17.8 H Lymph % (Auto) Eos % (Auto) 7.6 H Lymph # (Auto) 0.9 L Chloride Carbon Dioxide 33 H BUN Calcium 8.5 L Phosphorus 2.2 L Direct Bilirubin GGT Albumin Globulin Albumin/Globulin Ratio 07/04/18 04:00 RBC 3.50 L Hgb 10.1 L Hct 32.0 L RDW 18.1 H Lymph % (Auto) 12.1 L Eos % (Auto) Lymph # (Auto) 0.6 L Chloride Carbon Dioxide BUN Calcium Phosphorus Direct Bilirubin GGT Albumin Globulin Albumin/Globulin Ratio Meds: Medications Acetaminophen (Tylenol) 650 mg PO Q4-6HP PRN PRN Reason: PAIN/FEVER > 101 Last Admin: 07/06/18 06:33 Dose: 650 mg Albuterol/Ipratropium (Duoneb) 3 ml NEB Q6HRT [facility] Last Admin: 07/06/18 07:18 Dose: 3 ml Amoxicillin/Clavulanate Potassium (Augmentin) 875 mg PO BIDCC [facility] Last Admin: 07/06/18 08:34 Dose: 875 mg Ascorbic Acid (Vitamin C) 1,000 mg PO DAILY [facility] Last Admin: 07/06/18 08:30 Dose: 1,000 mg Citalopram Hydrobromide (Celexa) 20 mg PO DAILY [facility] Last Admin: 07/06/18 08:34 Dose: 20 mg Docusate Sodium (Colace) 100 mg PO BID [facility] Last Admin: 07/06/18 08:34 Dose: 100 mg Enoxaparin Sodium (Lovenox) 40 mg SQ DAILY [facility] Last Admin: 07/06/18 08:37 Dose: 40 mg Furosemide (Lasix) 40 mg IV BIDD [facility] Last Admin: 07/06/18 08:36 Dose: 40 mg Iron Carb/Multivit/[place]/Folic Acid (Multivitamin W/Minerals) 1 tab PO DAILY [facility] Last Admin: 07/06/18 08:34 Dose: 1 tab Levothyroxine Sodium (Synthroid) 25 mcg PO QAMAC [facility] Last Admin: 07/06/18 06:29 Dose: 25 mcg Magnesium Citrate (Citroma) 150 ml PO BIDP PRN PRN Reason: For BM once a day Megestrol Acetate (Megace) 400 mg PO BID [facility] Last Admin: 07/06/18 08:32 Dose: 400 mg Mirtazapine (Remeron) 7.5 mg PO HS [facility] Last Admin: 07/05/18 21:36 Dose: 7.5 mg Arginine/Glutamine/ (Calcium Hmb 1.5 Each) 1 dose PO BID [facility] Last Admin: 07/06/18 08:45 Dose: Not Given Potassium Chloride (Kdur) 10 meq PO QAC [facility] Last Admin: 07/06/18 08:35 Dose: 10 meq Potassium/Phosphorus/Sodium (Neutra Phos) 1 packet PO BID [facility] Last Admin: 07/06/18 08:44 Dose: 1 packet Sodium Biphosphate/Sodium Phosphate (Fleets Adult) 1 dose AR PRN PRN PRN Reason: Constipation Sodium Chloride (Saline Flush) 10 ml IV UD PRN PRN Reason: FLUSH Last Admin: 07/06/18 08:45 Dose: 10 ml Sodium Chloride (Sodium Chloride) 10 ml IV Q12 [facility] Last Admin: 07/06/18 08:46 Dose: 10 ml Zinc Sulfate (Zinc) 50 mg PO DAILY [facility] Last Admin: 07/06/18 08:31 Dose: 50 mg Medical - PN: A/P - Time Spent With Patient Total time spent is greater than 50% in coordination of care (as documented) at patient's floor/unit and/or counseling patient: - Narrative A/P Narrative: A/P Loculated Pleural Effusion- Case reviewed with pulmonary, noted repeat CXR is reported as chf, patient has loculations on the Ct, pleural fluid analysis is not growing any micro. Pulmonary consult advised thoracoscopy/ and possible chest tubes. I reviewed if this could be done at this facility, Dr Fagan noted that this would be needed to be done by a thoracic surgeon. I explained the patient her choices. She notes she is a old woman and would like to think and discuss this with her family. On oral Augmentin, was on zosyn before. Patient refused transfer to higher center, plan for palliative care CHF exacerbation acute, diastolic- Echo noted, moderate to severe , with pulmonary hypertension. Preserved LV function. IV lasix for now, cobian placed will monitor, neg 1800ml yesterday Aortic stenosis- Pt has CHF due to likely , and diastolic dysfunction. Need for intervention, pt has been reluctant for procedure int he past Hypothyroidism- TSH wnl, continue levothyroxine. Fecam impaction- resolved HTN- BP stable with present bp meds Chest wall wound- Management as per wound care, microbiology reviewed, syeda, on oral augmentin. DVT Enoxaparin Regualr diet DNR code status, palliative care to be persused ON talking with the patient, and family it seems they understand the overall poor prognosis, they have chosen palliative care, will be discharged to sn[facility] for palliative are and rehab, and eventually hospice care to be initiated as outpatient. Medical - PN: Qual - Stroke Symptom Onset Unknown: No - VTE Deep Vein Thrombosis/Pulmonary Embolism Present on Admission: No
[2018-07-06] MEDS: MIRTAZAPINE 15 MG TABLET PO SCH (22:15)
[2018-07-07] MEDS: IPRATROPIUM/ALBUTEROL 3 ML AMPUL.NEB NEB SCH ×4 (00:51→18:49)
[2018-07-07] MEDS: 0.9 % SODIUM CHLORIDE 10 ML SYRINGE IV PRN ×2 (04:37→19:35)
[2018-07-07 06:39] LABS: Basophils # (Auto) 0 K/mcL (0.0-0.3); Basophils % (Auto) 0.4 % (0.0-2.0); Eosinophils # (Auto) 0.3 K/mcL (0.0-0.7); Eosinophils % (Auto) 4.2 % (0.0-7.0); Granulocytes % (Auto) 68.7 % (38.0-78.0); Lymphocytes # (Auto) 1.3 K/mcL (1.5-4.8); Lymphocytes % (Auto) 17.3 % (15.5-49.0); Mean Cell Volume 89.9 fL (80.0-100.0); Mean Corpuscular HGB Conc 31.8 g/dL (31.0-36.0); Mean Corpuscular Hemoglobin 28.6 pg (26.0-34.0); Monocytes # (Auto) 0.7 K/mcL (0.1-0.9); Monocytes % (Auto) 9.4 % (1.0-12.0); Platelet Count 245 K/mcL (140-440); RBC 3.68 M/mcL (4.00-5.20); Red Cell Distribution Width 18.6 % (11.5-14.5)
[2018-07-07] MEDS: LEVOTHYROXINE 25 MCG TABLET PO SCH (07:08)
[2018-07-07 07:18] LABS: ALT/SGPT 28 U/l (0-40); Albumin/Globulin Ratio 0.8 (1.0-2.3); Alkaline Phosphatase 85 U/L (39-117); Bilirubin,Direct 0.3 mg/dL (0.0-0.3); Blood Urea Nitrogen 23 mg/dl (8-23); Gamma Glutamyl Transpeptidase 113 U/L (5-36); Uric Acid 4.4 mg/dL (2.5-8.0)
[2018-07-07] MEDS: NEUTRA PHOS 1 PACKET PO SCH ×2 (08:20→19:35)
[2018-07-07] MEDS: POTASSIUM CHLORIDE 10 MEQ TABLET PO SCH (08:21)
[2018-07-07] MEDS: MULTIVIT,THER IRON,CA,FA & MIN 1 TABLET PO SCH (08:21)
[2018-07-07] MEDS: ASCORBIC ACID 500 MG TABLET PO SCH (08:21)
[2018-07-07] MEDS: DOCUSATE SODIUM 100 MG CAPSULE PO SCH ×2 (08:21→19:34)
[2018-07-07] MEDS: AMOXICILLIN/POTASSIUM CLAV 875 MG TABLET PO SCH ×2 (08:21→17:15)
[2018-07-07] MEDS: CITALOPRAM 20 MG TABLET PO SCH (08:21)
[2018-07-07] MEDS: FUROSEMIDE 40 MG/4 ML VIAL IV SCH ×2 (08:22→16:10)
[2018-07-07] MEDS: GLUTAMINE PO SCH ×2 (08:22→19:35)
[2018-07-07] MEDS: MEGESTROL ACETATE 400 MG/10 ML ORAL.SUSP PO SCH ×2 (08:22→19:36)
[2018-07-07] MEDS: ARGININE PO SCH ×2 (08:22→19:35)
[2018-07-07] MEDS: CALCIUM HMB PO SCH ×2 (08:22→19:35)
[2018-07-07] MEDS: ENOXAPARIN 40 MG/0.4 ML SYRINGE SQ SCH (08:22)
[2018-07-07] MEDS: ZINC SULFATE 50 MG CAPSULE PO SCH (08:32)
[2018-07-07] MEDS: SODIUM CHLORIDE IV SCH ×2 (08:34→19:35)
--- NOTE | 2018-07-07 10:19 | XRay Report ---
CLINICAL INFORMATION: shortness of breath COMPARISON: 07/05/2018 FINDINGS: Moderate cardiomegaly is unchanged. Dual-chamber pacemaker leads in stable satisfactory position. Right IJ line in stable satisfactory position. Mediastinum is unremarkable. Pulmonary vessels have returned to near normal in caliber. Edema has improved. Right pleural effusion and right basilar atelectasis/infiltrate also improved and are now small/moderate IMPRESSION: 1. Near complete interval resolution of CHF 2. Improvement in right basilar infiltrate and/or atelectasis and effusion now small/moderate Interpreted and Authenticated by: Jerome Hollins 07/07/18
--- NOTE | 2018-07-07 12:59 | Internal Med Progress Note ---
Medical - PN: Subj Patient information: Note initiated : 07/07/18 at 12:50 pm Service Date, if different from initiated Date: [] Patient: Alicia Gleason 88 y/o F admitted on 07/01/18 for Lethargic, Confusion/ Pleural Effusion. Chief Complaint: [] Interval history: 88 yr female with chr chest wound admitted for respiratory distress and constipation. 07/05-patient seen examined, no acute overnight issues, has some cough, but feels better compared to yesterday, son by the bed side. patient looks weak and much more sick than how I remember her during her recent hospitalization for swing bed status Echo done reviewed, moderate to severe aortic stenosis, pulmonary hypertension, noted. Patient had pleural effusion on presentation, on CT Was loculated. She was tapped by the previous hsopitalist provider, thought to be transudative? 07/06 patient seen examined, doing better today, sitting comfortably in chair I reviewed with her and her family the recommendations of the oxygen equipment aide, the need for transfer to higher center for thoracoscopy and the also need for aortic valve intervention. Patient is not keen on doing any further procedures just medical management, she wishes to be comfortable and pursue palliative care. family in agreement with the plan. 07/07 Patient seen and examined, sitting in bed comfortable, still has some wet cough but notes that she is feeling better. Chest x-ray today shows resolution of congestive heart failure and improved pleural effusion. Patient does not want any further aggressive interventions which is palliative care. Plan for discharge to rehab center tomorrow palliative care. EKG done today for tachycardia shows sinus tachycardia with left bundle branch block which is common, patient at baseline has a pacemaker Pertinent ROS: Denies headache, dizziness Denies chest pain, palpitations improving cough or shortness of breath Denies abdominal pain, nausea or vomiting. - Constitutional Vitals: Vital Signs Temp Pulse Resp BP Pulse Ox 97.7 F 85 20 92/57 93 07/07/18 11:30 07/07/18 11:30 07/07/18 11:30 07/07/18 11:30 07/07/18 11:30 Period Temp Pulse Resp BP Sys/Busby Pulse Ox Last 24 Hr 97.7 F-99.3 F 85-116 14-24 92-152/54-82 87-94 Intake and Output 1007/07/18 07/07/18 21:59 05:59 13:59 Intake Total 270 / 270 200 / 200 340 / 340 Output Total 1125 / 1125 1600 / 1600 Balance -855 / -855 -1400 / -1400 340 / 340 Weight 115 lb 6.4 oz Patient Weight 07/08/18 05:59 Weight 115 lb 6.4 oz Intake & Output: Intake & Output 07/06/18 07/07/18 07/07/18 21:59 05:59 13:59 Intake Total 270 / 270 200 / 200 340 / 340 Output Total 1125 / 1125 1600 / 1600 Balance -855 / -855 -1400 / -1400 340 / 340 Weight 115 lb 6.4 oz Intake: Oral 270 / 270 200 / 200 340 / 340 Output: Urine Catheter Amount 1125 / 1125 1600 / 1600 Other: Meal snack Breakfast Percent of Meal Consumed 100% 100% Feeding Ability Assist with Tray Set Up Urine Appearance Clear Clear Clear Uretheral (Cobian) Clear Urine Color Bright Yellow Pale Light Kimberly Uretheral (Cobian) Pale Urine Odor Normal Normal Stool Size Moderate Stool Color Brown Stool Consistency Soft # Bowel Movements 1 Exam: Constitutional; Afebrile, cooperative, alert, not in distress. Eyes- No icterus, , No periorbital swelling Ears- Ext ear normal, hearing normal to conversation. Neck- Midline trachea, supple Respiratory system: Air Entry improved on right base, but still is dimished at the lower zone, improved crackles no wheezing, no rhonchi. CVS- Rate rhythm regular, S1,S2 heard, no gallop, no rub. 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 Medical - PN: Obj Da - Labs CBC & Chem 7: 07/07/18 04:00 07/07/18 04:00 Labs: Abnormal Lab Results 07/07/18 07/07/18 07/06/18 04:00 04:00 04:00 RBC 3.68 L Hgb 10.5 L Hct 33.1 L RDW 18.6 H Eos % (Auto) Lymph # (Auto) 1.3 L Chloride 94 L 93 L Carbon Dioxide 36 H 39 H BUN 26 H Calcium 8.5 L Phosphorus Direct Bilirubin 0.4 H GGT 113 H 96 H AST 42 H Albumin 3.0 L 2.8 L Globulin 4.0 H Albumin/Globulin Ratio 0.8 L 0.8 L 07/06/18 07/05/18 07/05/18 04:00 04:00 04:00 RBC 3.37 L 3.53 L Hgb 9.7 L 10.0 L Hct 30.3 L 31.8 L RDW 18.3 H 17.8 H Eos % (Auto) 7.6 H Lymph # (Auto) 1.1 L 0.9 L Chloride Carbon Dioxide 33 H BUN Calcium Phosphorus 1.6 L Direct Bilirubin 0.5 H GGT 102 H AST Albumin 2.9 L Globulin 3.9 H Albumin/Globulin Ratio 0.7 L Meds: Medications Acetaminophen (Tylenol) 650 mg PO Q4-6HP PRN PRN Reason: PAIN/FEVER > 101 Last Admin: 07/06/18 06:33 Dose: 650 mg Albuterol/Ipratropium (Duoneb) 3 ml NEB Q6HRT [facility] Last Admin: 07/07/18 07:14 Dose: 3 ml Amoxicillin/Clavulanate Potassium (Augmentin) 875 mg PO BIDCC [facility] Last Admin: 07/07/18 08:21 Dose: 875 mg Ascorbic Acid (Vitamin C) 1,000 mg PO DAILY [facility] Last Admin: 07/07/18 08:21 Dose: 1,000 mg Citalopram Hydrobromide (Celexa) 20 mg PO DAILY [facility] Last Admin: 07/07/18 08:21 Dose: 20 mg Docusate Sodium (Colace) 100 mg PO BID [facility] Last Admin: 07/07/18 08:21 Dose: 100 mg Enoxaparin Sodium (Lovenox) 40 mg SQ DAILY [facility] Last Admin: 07/07/18 08:22 Dose: 40 mg Furosemide (Lasix) 40 mg IV BIDD [facility] Last Admin: 07/07/18 08:22 Dose: 40 mg Iron Carb/Multivit/[place]/Folic Acid (Multivitamin W/Minerals) 1 tab PO DAILY [facility] Last Admin: 07/07/18 08:21 Dose: 1 tab Levothyroxine Sodium (Synthroid) 25 mcg PO QAMAC [facility] Last Admin: 07/07/18 07:08 Dose: 25 mcg Magnesium Citrate (Citroma) 150 ml PO BIDP PRN PRN Reason: For BM once a day Megestrol Acetate (Megace) 400 mg PO BID [facility] Last Admin: 07/07/18 08:22 Dose: 400 mg Mirtazapine (Remeron) 7.5 mg PO HS [facility] Last Admin: 07/06/18 22:15 Dose: 7.5 mg Arginine/Glutamine/ (Calcium Hmb 1.5 Each) 1 dose PO BID [facility] Last Admin: 07/07/18 08:22 Dose: Not Given Potassium Chloride (Kdur) 10 meq PO QAC [facility] Last Admin: 07/07/18 08:21 Dose: 10 meq Potassium/Phosphorus/Sodium (Neutra Phos) 1 packet PO BID [facility] Last Admin: 07/07/18 08:20 Dose: 1 packet Sodium Biphosphate/Sodium Phosphate (Fleets Adult) 1 dose KS PRN PRN PRN Reason: Constipation Sodium Chloride (Saline Flush) 10 ml IV UD PRN PRN Reason: FLUSH Last Admin: 07/07/18 04:37 Dose: 10 ml Sodium Chloride (Sodium Chloride) 10 ml IV Q12 [facility] Last Admin: 07/07/18 08:34 Dose: 10 ml Zinc Sulfate (Zinc) 50 mg PO DAILY [facility] Last Admin: 07/07/18 08:32 Dose: 50 mg Medical - PN: A/P - Time Spent With Patient Total time spent is greater than 50% in coordination of care (as documented) at patient's floor/unit and/or counseling patient: - Narrative A/P Narrative: A/P Loculated Pleural Effusion- Case reviewed with pulmonary, noted repeat CXR is reported as chf, patient has loculations on the Ct, pleural fluid analysis is not growing any micro. Pulmonary consult advised thoracoscopy/ and possible chest tubes. I reviewed if this could be done at this facility, Dr Fagan noted that this would be needed to be done by a thoracic surgeon. I explained the patient her choices. She notes she is a old woman and would like to think and discuss this with her family. On oral Augmentin, was on zosyn before. Patient refused transfer to higher center, plan for palliative care repeat CXR 07/07 shows improved effusion. CHF exacerbation acute, diastolic- Echo noted, moderate to severe , with pulmonary hypertension. Preserved LV function. IV lasix for now, cobian placed will monitor, repeat CXR is showing resolution of chf Aortic stenosis- Pt has CHF due to likely , and diastolic dysfunction. Need for intervention, pt has been reluctant for procedure int he past Hypothyroidism- TSH wnl, continue levothyroxine. Fecam impaction- resolved HTN- BP stable with present bp meds Chest wall wound- Management as per wound care, microbiology reviewed, syeda, on oral augmentin. DVT Enoxaparin Regualr diet DNR code status, palliative care to be persused ON talking with the patient, and family it seems they understand the overall poor prognosis, they have chosen palliative care, will be discharged to snf for palliative are and rehab, and eventually hospice care to be initiated as outpatient. Medical - PN: Qual - Stroke Symptom Onset Unknown: No - VTE Deep Vein Thrombosis/Pulmonary Embolism Present on Admission: No
[2018-07-07] MEDS: MIRTAZAPINE 15 MG TABLET PO SCH (19:34)
[2018-07-08] MEDS: IPRATROPIUM/ALBUTEROL 3 ML AMPUL.NEB NEB SCH ×2 (03:19→07:55)
[2018-07-08] MEDS: FUROSEMIDE 40 MG/4 ML VIAL IV SCH (08:14)
[2018-07-08] MEDS: ENOXAPARIN 40 MG/0.4 ML SYRINGE SQ SCH (08:14)
[2018-07-08] MEDS: AMOXICILLIN/POTASSIUM CLAV 875 MG TABLET PO SCH (08:15)
[2018-07-08] MEDS: NEUTRA PHOS 1 PACKET PO SCH (08:15)
[2018-07-08] MEDS: CITALOPRAM 20 MG TABLET PO SCH (08:15)
[2018-07-08] MEDS: ASCORBIC ACID 500 MG TABLET PO SCH (08:15)
[2018-07-08] MEDS: MULTIVIT,THER IRON,CA,FA & MIN 1 TABLET PO SCH ×2 (08:16→08:28)
[2018-07-08] MEDS: ZINC SULFATE 50 MG CAPSULE PO SCH (08:16)
[2018-07-08] MEDS: POTASSIUM CHLORIDE 10 MEQ TABLET PO SCH ×2 (08:16→08:27)
[2018-07-08] MEDS: LEVOTHYROXINE 25 MCG TABLET PO SCH (08:16)
[2018-07-08] MEDS: DOCUSATE SODIUM 100 MG CAPSULE PO SCH (08:16)
[2018-07-08] MEDS: MEGESTROL ACETATE 400 MG/10 ML ORAL.SUSP PO SCH (08:16)
[2018-07-08] MEDS: ARGININE PO SCH (08:17)
[2018-07-08] MEDS: SODIUM CHLORIDE IV SCH (08:17)
[2018-07-08] MEDS: GLUTAMINE PO SCH (08:17)
[2018-07-08] MEDS: CALCIUM HMB PO SCH (08:17)
--- NOTE | 2018-07-08 08:40 | Consultation ---
DATE OF CONSULTATION: 07/05/2018 HISTORY OF PRESENT ILLNESS: The patient is an 88-year-old female who was admitted on 07/01/2018 after presenting with some confusion and respiratory distress. The patient had apparently had a recent surgery to try to repair a chest wall wound which was a complication of radiation therapy for breast carcinoma. On review with presentation, she was found to have a large right-sided pleural effusion. This was subsequently subjected to a thoracentesis. Radiographically, it appeared to be somewhat loculated. The thoracentesis fluid findings are incomplete, and the question perhaps remains whether it is an exudate or transudate. The patient was initially placed on broad spectrum antibiotics, although she did not have a febrile course or significantly elevated white blood cell count. She has been switched to oral Augmentin and a regimen of diuresis instituted by the current hospitalist. The patient is an alert and interactive, although hard of hearing, female in no distress. Her memory function is not the greatest. She denies significant cough or sputum production. She has had white or harding sputum and no yellow sputum. The nurse today suggests there is some tinge of yellow to her sputum on her shift today. The patient reports that she did smoke for approximately 20 pack-years but quit many years ago. She says everybody was doing it back then. She was a light social smoker she suggests. She denies unusual exposures of a respiratory nature in her life or work career. She was recently in a facility where her wound was being tended to. REVIEW OF SYSTEMS: Systems review was without additional focus of abnormality. PHYSICAL EXAMINATION: GENERAL: A pleasant 88-year-old female in no distress at rest. HEAD: Atraumatic and normocephalic. EYES: PERRL, EOMI. Sclerae and conjunctiva clear. NECK: Supple. Carotids without bruits. CHEST: There is a dressing on the anterior right upper chest where her wound is. That apparently failed a recent plastic flap attempted closure. Pacemaker in left subclavicular area on the anterior chest. LUNGS: Lungs have significantly decreased breath sounds in the right hemithorax with coarse rhonchi and wheeze and dullness consistent with pleural effusion. HEART: Regular S1, S2. There is a course 2/6 systolic murmur in the aortic area radiating toward the carotids. This is consistent with her echocardiographic data showing a moderate aortic stenosis. ABDOMEN: Soft. Bowel sounds are present. Liver and spleen not enlarged. EXTREMITIES: Bones, joints and extremities are without acute changes. There is no ankle or granda edema. NEUROLOGIC: Nonfocal. LABORATORY DATA: Laboratory data collected thus far in the chart include serial CBCs with normal white counts. Hemoglobin from 10 to 11.4, platelet count in the normal range. She was originally volume depleted with a BUN of 50 and a creatinine of 1.1. Today, the BUN is 21 and creatinine is 0.9. TSH was normal at the time of presentation. Cortisol random high at 23.4. IMAGING: Review of the radiographic data does show the loculated complex pleural process in the right hemithorax with significant compressive atelectasis and airway narrowing. IMPRESSION: An 88-year-old female with a complicated right pleural process with not precisely known etiology. Given her comorbidity of aortic valvular disease, although perhaps the most complete course in dealing with this, which would be a thoracoscopic clean-out of the right hemithorax, is probably not clinically prudent. The possibility of one or two chest tubes with attempts to break down loculations and see if the fluid can be removed around the right lung and it will expand would be the next possible intervention. That might need to be done at an institution with greater subspecialty surgical care available. I will leave that to the hospitalist and patient and local surgical team to decide. It seems like some attempt needs to be made to drain this pleural space to try and improve right lung function. I hope the lung is not trapped under a pleural rind.I will discuss and follow with. Thank you for the opportunity to participate in the care of this pleasant elderly lady. KEN:blanca Job ID: [id number] Doc ID: [id number] Kraig [place]
--- NOTE | 2018-07-08 09:38 | Discharge Summary ---
Medical - DS: Prov Patient information: Note initiated : 07/08/18 at 9:33 am Service Date, if different from initiated Date: [] Patient: Alicia Gleason 88 y/o F admitted on 07/01/18 for Lethargic, Confusion/ Pleural Effusion. Chief Complaint: [] Date of admission: 07/01/18 03:16 Discharge date: 07/08/18 Primary care physician: Lucero Fu Consults: 06/30/18 Consult to Physician [CONS] Stat Comment: Consulting Provider: Wilfredo Monaco Reason For Exam: Physician to Consult 07/01/18 10:28 Consult to Physician [CONS] Routine Comment: Consulting Provider: Viraj Yarbrough Reason For Exam: Physician to Consult 07/02/18 09:57 Consult to Physician [CONS] Routine Comment: wound care consult Consulting Provider: Jasmin Bazan Reason For Exam: Physician to Consult 07/05/18 11:57 Consult to Physician [CONS] Routine Comment: Consulting Provider: Kraig Melgar Reason For Exam: Physician to Consult Discharging clinician: Jomar Santana Medical - DS: Meds - Discharge Medications Prescriptions: Amoxicillin/Potassium Clav [Augmentin] 875 mg PO BIDCC #20 tab Furosemide [Lasix] 40 mg PO DAILY #30 tab Hydrocodone/APAP 7.5/325Mg [Paradox 7.5-325Mg] 1 - 2 tab PO Q4HP PRN #30 tab PRN Reason: Pain LORazepam [Ativan] 0.5 mg PO BID PRN #30 tab MDD 0.5 PRN Reason: Anxiety Active and Home Medications: Home Medications levothyroxine 25 mcg tablet 25 mcg PO DAILY 12/06/16 [History Confirmed Last Taken 05/23/18 05:49] Bisacodyl [Dulcolax] 10 mg NC PRN PRN 05/23/18 [History Confirmed 07/01/18 Last Taken Unknown] Magnesium Hydroxide [Milk of Magnesia] 30 ml PO PRN PRN 05/23/18 [History Confirmed 07/01/18 Last Taken Unknown] Metoprolol Succinate [Toprol Xl] 12.5 mg PO BID 05/23/18 [History Confirmed 10/18 Last Taken 05/22/18 17:55] Na Phos,M-B/Na Phos,Di-Ba [Fleets Adult] 1 dose NC PRN PRN 05/23/18 [History Confirmed 07/01/18 Last Taken Unknown] Ascorbic Acid [Vitamin C] 1,000 mg PO DAILY tablet 06/06/18 [Rx Confirmed 07/01 Last Taken Unknown] Citalopram [Celexa] 20 mg PO DAILY tablet 06/06/18 [Rx Confirmed 07/01/18 Last Taken Unknown] Docusate Sodium [Colace] 100 mg PO BID capsule 06/06/18 [Rx Confirmed 07/01/18 Last Taken Unknown] Hydrocodone/APAP 7.5/325Mg [Paradox 7.5-325Mg] 1 - 2 tab PO Q4HP PRN #30 tab 06/06 [Rx Confirmed 07/01/18 Last Taken Unknown] Ipratropium/Albuterol [Duoneb] 3 ml NEB Q6HP PRN ampul.neb 06/06/18 [Rx Confirmed 07/01/18 Last Taken Unknown] Ondansetron HCl [Zofran ODT] 4 mg SL Q4HP PRN #0 tablet 06/06/18 [Rx Confirmed 07/01/18 Last Taken Unknown] Vit A,C & E/Lutein/Minerals [Ocuvite] 1 tab PO DAILY tablet 06/06/18 [Rx Confirmed 07/01/18 Last Taken Unknown] Zinc Sulfate [Zinc] 50 mg PO DAILY capsule 06/06/18 [Rx Confirmed 07/01/18 Last Taken Unknown] Arginine/Glutamine/Calcium Hmb [Edson Packet] 1.5 each PO BID 07/01/18 [History Confirmed 07/01/18 Last Taken Unknown] LORazepam [Ativan] 0.5 mg PO BID MDD 0.5 07/01/18 [History Confirmed 07/01/18 Last Taken Unknown] Mirtazapine [Remeron] 7.5 mg PO HS 07/01/18 [History Confirmed 07/01/18 Last Taken Unknown] Mv,Ca,Min/Iron Fum/FA/Lyco/Lut [Complete Multi Tablet] 1 tablet PO DAILY [History Confirmed 07/01/18 Last Taken Unknown] Polyethylene Glycol 3350 [Miralax] 17 gm PO DAILY 07/01/18 [History Confirmed Last Taken Unknown] Medical - DS: Hosp Hospital course: 88 yr female with chr chest wound admitted for respiratory distress secondary to pneumonia/ loculate pleural effusion and constipation. and confusion. Pneumonia/ Loculated Pleural effusion- Patient had effusion drained, microbiology is negative. Patient pleural effusion recurred and responded somewhat to IV lasix. The patient was seen by pulmonary and advised to under go thoracoscopy to clear up all the loculations. The patient would have had to go to [facility] for this treatment, she did not wish to go up, nor did she want any further treatment, just medical management. She understood that treating loculated effusion with diuretics and antibiotics is not the standard of care, but is willing to accept this therapy. Family by bed side also participated in decision making process. The patient will be discharged on oral augmentin for another 10 days. She does not wish for any further aggresive interventions, only palliative care. Aortic stenosis- Echo showed patient has moderate to severe aortic stenosis, aortic valve area 0.8cm, the patient had CHF during this hospitalization als, lvef is preseved. She also has pulmonary hypertension on echo. She would eventually need a vavle replacement or TAVR, which she has declined. Palliative care only, lasix 40mg once diaily with KCL supplementatino started. Chest wall wound- Followed by wound care- on oral antibiotics for 10 days to help with same. Dressing changes as per wound care providers. Follow up in the wound care clinic. Constipation- resolved, but is creping back up, will continue with aggresive bowel regime. The rest of the stay in the hospital was unremarkable. The goal hence forth is palliative care, no aggressive interventions. If possible avoid further hospitalizations unless symptoms are not well controlled with oral medications / palliative care team. patient is not strong to go home and will be discharged to rehab with palliative care goals, ultimately she wishes to go home, if her condition were to worsen, she would then consider hospice treatment, which can be initiated by her PCP. Discharge diagnosis: Pneumonia, Altered mental status, CHF - Time Spent with Patient Total time spent providing and/or coordinating discharge services: Greater than 30 minutes Medical - DS: Exam - Constitutional Vitals: Vital Signs Temp Pulse Pulse Resp BP Pulse Ox 07/08/18 07:56 110 H 20 07/08/18 04:00 98.1 F 106 H 20 119/75 97 07/07/18 23:39 98.1 F 110 H 20 110/61 95 07/07/18 19:59 97.4 F 110 H 20 99/61 92 07/07/18 18:51 85 18 95 07/07/18 18:49 110 H 20 07/07/18 16:11 98 F 75 24 H 113/67 93 07/07/18 13:21 80 22 07/07/18 11:30 97.7 F 85 20 92/57 93 Intake and Output 07/07/18 07/08/18 07/08/18 21:59 05:59 13:59 Intake Total 100 / 100 200 / 200 Output Total 575 / 575 1125 / 1125 Balance -475 / -475 -925 / -925 Intake: Oral 100 / 100 200 / 200 Output: Urine Catheter Amount 575 / 575 1125 / 1125 Other: Meal Dinner Percent of Meal Consumed 100% Urine Appearance Clear Clear Uretheral (Wilson) Clear Clear Urine Color Pale Straw Uretheral (Wilson) Pale Pale Urine Odor Normal Normal Stool Size Moderate Stool Color Brown Stool Consistency Formed # Bowel Movements 1 Weight 115 lb 6.4 oz Additional comments: Constitutional; Afebrile, cooperative, alert, not in distress. Eyes- No icterus, , No periorbital swelling Ears- Ext ear normal, hearing normal to conversation. Neck- Midline trachea, supple Respiratory system: Air Entry decreased right base, No crackles or wheezing, no rhonchi., CVS- Rate rhythm regular, S1,S2 heard, no gallop, no rub. 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 Medical - DS: A/P - Patient/Caregiver Discharge Instructions Activity: as per physical therapy, increase activity as tolerated, wear oxygen at all times Diet: Regular Diet Additional Instructions: Please take augmentin for another 10 days Aggressive bowel regime, Patient has chosen palliative / comfort care. Avoid sending patient to the ER unless her palliative care goals cannot be accomplished at the long term. If patient condition were to worsen, consider initiation of hospice. Wound care instructions as per Wound care team. Prescriptions: Amoxicillin/Potassium Clav [Augmentin] 875 mg PO BIDCC #20 tab Furosemide [Lasix] 40 mg PO DAILY #30 tab Hydrocodone/APAP 7.5/325Mg [Paradox 7.5-325Mg] 1 - 2 tab PO Q4HP PRN #30 tab PRN Reason: Pain LORazepam [Ativan] 0.5 mg PO BID PRN #30 tab MDD 0.5 PRN Reason: Anxiety Other Amb Orders: OT Discharge Order Location: None Selected Physical Therapy at Discharge - General Location: None Selected - Follow up Plan Follow up with: Lucero Fu ARNP [Primary Care Provider] - Disposition: Xfer SNF Prognosis: Undetermined Rehab Potential: Undetermined I certify that the patient requires SNF services: Yes Overall status at discharge: patient is progressing back to baseline Medical - DS: Qual - VTE Deep Vein Thrombosis/Pulmonary Embolism Present on Admission: No
== END 2018-07-08 12:00 | DRG 177 ==
LOC: ED 20:13 → ICU 07-01 03:15
PROVIDERS: ADMIT Internal Medicine; ATTEND Internal Medicine